=== PATIENT | male | born 1945 | race Caucasian/White ===

== ENCOUNTER 2023-05-19 09:43 | Inpatient (IN) | payer MEDICARE, OTHER ==
[~2023-05-19] VITALS: Ht 182.9 cm; Wt 94.2 kg
[~2023-05-19 09:43] MED LIST: PANT40TA2 PO; QUET50TA PO; SUCR1SUS26 PO
[2023-05-19 09:59] VITALS: PULSE 104; RESP 16; O2SAT 91
[2023-05-19] MEDS ORDERED: SODIUM CHLORIDE 0.9% 1,000 ML IV ONE (10:45)
[2023-05-19 11:07] LABS: Basophils # (auto) 0 10 ^3/uL (0-0.2); Basophils % (auto) 0.5 % (0.0-2.0); Eosinophils # (auto) 0 10 ^3/uL (0-0.8); Eosinophils % (auto) 0.2 % (0.0-7.0); Hematocrit 28.5 % (41.0-53.0); Hemoglobin 9.3 g/dL (13.5-17.5); Lymphocytes # (auto) 1.4 10 ^3/uL (0.4-5.4); Lymphocytes % (auto) 14.3 % (10.0-50.0); Mean Corpuscular Hemoglobin 27.9 pg (28.0-32.0); Mean Corpuscular Hgb Conc. 32.5 g/dL (32.0-36.0); Mean Corpuscular Volume 85.7 fL (80.0-100.0); Monocytes # (auto) 0.8 10 ^3/uL (0-1.3); Monocytes % (auto) 7.7 % (0.0-12.0); Neutrophils # (auto) 7.8 10 ^3/uL (1.6-8.6); Neutrophils % (auto) 77.3 % (37.0-80.0); Red Blood Cells 3.33 10^6/uL (4.5-5.90); Red Cell Distribution Width 18.6 % (11.8-14.3)
[2023-05-19 11:24] LABS: INR 1.17 (0.9-1.15); Prothrombin Time 12.2 sec (9.3-11.8)
[2023-05-19 11:37] LABS: Albumin 2.9 g/dL (3.4-5.0); Calcium 8.3 mg/dL (8.5-10.1); Magnesium 1.7 mg/dL (1.6-2.6); Potassium 4.6 mmol/L (3.5-5.1)
[2023-05-19 11:41] LABS: BUN/Creatinine Ratio 60.7 (10.0-20.0); Bilirubin, Total 0.2 mg/dL (0.2-1.0); Total Protein 6.4 g/dL (6.4-8.2)
[2023-05-19] MEDS ORDERED: IOHEXOL 300 MG/ML 100ML BOTTLE IJ ONE (12:08)
[2023-05-19] MEDS ORDERED: ONDANSETRON HCL 4 MG/2 ML VIAL IV PRN (16:00)
[2023-05-19] MEDS ORDERED: D5W/LACTATED RINGERS 1,000 ML IV ONE (16:00)
[2023-05-19] MEDS ORDERED: HYDROcodone-ACET 5/325MG TAB PO PRN (16:00)
[2023-05-19] MEDS ORDERED: ACETAMINOPHEN 325 MG TAB PO PRN (16:00)
[2023-05-19 16:39] LABS: Basophils # (auto) 0 10 ^3/uL (0-0.2); Basophils % (auto) 0.3 % (0.0-2.0); Eosinophils # (auto) 0 10 ^3/uL (0-0.8); Eosinophils % (auto) 0.2 % (0.0-7.0); Hematocrit 27.3 % (41.0-53.0); Hemoglobin 8.8 g/dL (13.5-17.5); Lymphocytes # (auto) 1.9 10 ^3/uL (0.4-5.4); Lymphocytes % (auto) 15.5 % (10.0-50.0); Mean Corpuscular Hemoglobin 27.8 pg (28.0-32.0); Mean Corpuscular Hgb Conc. 32.4 g/dL (32.0-36.0); Mean Corpuscular Volume 85.8 fL (80.0-100.0); Monocytes # (auto) 1.1 10 ^3/uL (0-1.3); Monocytes % (auto) 9.1 % (0.0-12.0); Neutrophils # (auto) 9.1 10 ^3/uL (1.6-8.6); Neutrophils % (auto) 74.9 % (37.0-80.0); Red Blood Cells 3.18 10^6/uL (4.5-5.90); Red Cell Distribution Width 18.4 % (11.8-14.3); White Blood Cell 12.2 10^3/uL (4.4-10.8)
[2023-05-19 17:32] LABS: % Iron Saturation 20.1 % (20-55)
[2023-05-19 19:25] VITALS: PULSE 68; RESP 18; O2SAT 91
[2023-05-19 21:32] LABS: Urine WBC None Seen /hpf (0 - 3)
[2023-05-19 21:40] LABS: Urine Bacteria NONE SEEN /hpf (None Seen); Urine Blood Negative /uL (Negative); Urine Clarity Clear (Clear); Urine Color Colorless (Yellow); Urine Protein, UAD Negative (Negative); Urine Specific Gravity 1.039 (1.001-1.035); Urine Urobilinogen Normal (Negative); Urine pH 5.5 (5.0-8.0)
[2023-05-19 21:59] LABS: Basophils # (auto) 0.1 10 ^3/uL (0-0.2); Eosinophils # (auto) 0 10 ^3/uL (0-0.8); Eosinophils % (auto) 0.3 % (0.0-7.0); Hemoglobin 8.2 g/dL (13.5-17.5); Neutrophils # (auto) 7.5 10 ^3/uL (1.6-8.6)
[2023-05-19] MEDS ORDERED: PANTOPRAZOLE 40 MG/10 ML VIAL INJ IV SCH (22:00)
[2023-05-19 22:01] LABS: Basophils % (auto) 0.6 % (0.0-2.0); Hematocrit 25.6 % (41.0-53.0); Lymphocytes # (auto) 1.3 10 ^3/uL (0.4-5.4); Lymphocytes % (auto) 13.5 % (10.0-50.0); Mean Corpuscular Hemoglobin 28.1 pg (28.0-32.0); Mean Corpuscular Volume 87.9 fL (80.0-100.0); Monocytes % (auto) 10.2 % (0.0-12.0); Neutrophils % (auto) 75.4 % (37.0-80.0); Nucleated Red Blood Cells % 0.1 %; Red Blood Cells 2.91 10^6/uL (4.5-5.90); Red Cell Distribution Width 18.2 % (11.8-14.3); White Blood Cell 9.9 10^3/uL (4.4-10.8)
[2023-05-19] MEDS: SODIUM CHLOR 0.9% PF (SALINE LOCK) 10ML VIAL/SYR IV SCH (22:05)
[2023-05-20] VITALS (32 sets, daily range): BP systolic 59–132; BP diastolic 26–90; PULSE 102–145; RESP 11–28; TEMP 97.5–99.9; O2SAT 94–100
[2023-05-20] MEDS ORDERED: SODIUM CHLORIDE 0.9% 500 ML IV ONE (01:30)
[2023-05-20 01:47] LABS: Hematocrit 20.7 % (41.0-53.0)
[2023-05-20 01:50] LABS: Hemoglobin 6.7 g/dL (13.5-17.5)
[2023-05-20] MEDS ORDERED: NOREPINEPHRINE 8 MG/250ML KIT 250 ML IV ONE (01:59)
[2023-05-20] MEDS ORDERED: NOREPINEPHRINE 8 MG/250ML KIT 250 ML IV SCH (02:00)
[2023-05-20 02:30] LABS: BUN/Creatinine Ratio 52.6 (10.0-20.0); Calcium 7.8 mg/dL (8.5-10.1)
[2023-05-20] MEDS: PANTOPRAZOLE 40mg/50ML NS AE 50 ML IV SCH ×4 (03:26→16:40)
[2023-05-20] MEDS ORDERED: ETOMIDATE (2MG/ML) 20ML VIAL IV ONE ×2 (05:18→06:00)
[2023-05-20] MEDS ORDERED: ROCURONIUM 10MG/ML 10ML VIAL IV ONE ×2 (05:19→06:00)
[2023-05-20] MEDS ORDERED: MIDAZOLAM DRIP 50 mg/50mL 50 ML IV ONE (05:38)
[2023-05-20] MEDS ORDERED: fentaNYL Drip 2500mCg/250mlNS 250 ML IV ONE (05:45)
[2023-05-20 05:52] LABS: Basophils # (auto) 0 10 ^3/uL (0-0.2); Basophils % (auto) 0.2 % (0.0-2.0); Eosinophils # (auto) 0 10 ^3/uL (0-0.8); Eosinophils % (auto) 0.1 % (0.0-7.0); Hematocrit 31.7 % (41.0-53.0); Hemoglobin 10.3 g/dL (13.5-17.5); Lymphocytes # (auto) 2.6 10 ^3/uL (0.4-5.4); Lymphocytes % (auto) 17.6 % (10.0-50.0); Mean Corpuscular Hemoglobin 29.1 pg (28.0-32.0); Mean Corpuscular Hgb Conc. 32.4 g/dL (32.0-36.0); Mean Corpuscular Volume 89.8 fL (80.0-100.0); Monocytes # (auto) 1.5 10 ^3/uL (0-1.3); Neutrophils # (auto) 10.4 10 ^3/uL (1.6-8.6); Neutrophils % (auto) 72.1 % (37.0-80.0); Red Blood Cells 3.53 10^6/uL (4.5-5.90); Red Cell Distribution Width 17.3 % (11.8-14.3); White Blood Cell 14.5 10^3/uL (4.4-10.8)
[2023-05-20 06:07] LABS: Base Excess -7.4 mmol/L (-2.0-2.0)
[2023-05-20] MEDS: fentaNYL Drip 2500mCg/250mlNS 250 ML IV SCH ×2 (06:10→23:56)
[2023-05-20] MEDS: SODIUM CHLOR 0.9% PF (SALINE LOCK) 10ML VIAL/SYR IV SCH ×3 (06:16→23:56)
[2023-05-20] MEDS ORDERED: PHENYLEPHRINE IV 250 ML IV ONE ×3 (06:18→16:36)
[2023-05-20] MEDS ORDERED: PHENYLEPHRINE IV 250 ML IV STA (06:26)
[2023-05-20] MEDS ORDERED: PHENYLEPHRINE IV 250 ML IV SCH (06:30)
[2023-05-20 07:21] LABS: Base Excess -10.2 mmol/L (-2.0-2.0)
[2023-05-20] MEDS: MIDAZOLAM DRIP 50 mg/50mL 50 ML IV SCH (07:51)
[2023-05-20] MEDS: OCTREOTIDE ACETATE 500 MCG in SODIUM CHL 0.9% 99 ML IV SCH ×2 (09:37→19:37)
[2023-05-20 11:15] LABS: Basophils # (auto) 0 10 ^3/uL (0-0.2); Basophils % (auto) 0.3 % (0.0-2.0); Eosinophils # (auto) 0 10 ^3/uL (0-0.8); Lymphocytes # (auto) 2.1 10 ^3/uL (0.4-5.4); Nucleated Red Blood Cells % 0.2 %
[2023-05-20 11:16] LABS: Eosinophils % (auto) 0.1 % (0.0-7.0); Hematocrit 39.2 % (41.0-53.0); Hemoglobin 12.2 g/dL (13.5-17.5); Lymphocytes % (auto) 11.1 % (10.0-50.0); Mean Corpuscular Hemoglobin 29.2 pg (28.0-32.0); Mean Corpuscular Hgb Conc. 31.2 g/dL (32.0-36.0); Mean Corpuscular Volume 93.8 fL (80.0-100.0); Monocytes # (auto) 2.3 10 ^3/uL (0-1.3); Monocytes % (auto) 12.5 % (0.0-12.0); Neutrophils # (auto) 14.1 10 ^3/uL (1.6-8.6); Red Blood Cells 4.18 10^6/uL (4.5-5.90); Red Cell Distribution Width 17.3 % (11.8-14.3); White Blood Cell 18.6 10^3/uL (4.4-10.8)
[2023-05-20] MEDS ORDERED: AZITHROMYCIN 500MG/ 250ML 250 ML IV ONE (13:15)
[2023-05-20] MEDS ORDERED: SODIUM CHLORIDE 0.9% 1,000 ML IV ONE (13:15)
[2023-05-20] MEDS ORDERED: cefTRIAXone 1GM/50ML D5W 50 ML IV ONE (13:15)
[2023-05-20] MEDS: ALBUTEROL SULF 2.5 MG/0.5ML(0.5%) NEB SOLN NEB SCH ×3 (13:17→23:18)
[2023-05-20] MEDS: IPRATROPIUM BROM 0.5 MG/2.5ML INH SOL NEB SCH ×3 (13:18→23:18)
[2023-05-20] MEDS: PHENYLEPHRINE INJ 40 MG in SODIUM CHL 0.9% 246 ML IV SCH (18:51)
[2023-05-20] MEDS: NOREPINEPHRINE BITARTRATE 16 MG in SODIUM CHL 0.9% 234 ML IV SCH (19:40)
[2023-05-20 21:11] LABS: Basophils # (auto) 0.1 10 ^3/uL (0-0.2); Basophils % (auto) 0.5 % (0.0-2.0); Eosinophils # (auto) 0 10 ^3/uL (0-0.8); Eosinophils % (auto) 0.1 % (0.0-7.0); Hematocrit 37.6 % (41.0-53.0); Hemoglobin 11.9 g/dL (13.5-17.5); Lymphocytes # (auto) 2.5 10 ^3/uL (0.4-5.4); Lymphocytes % (auto) 13.8 % (10.0-50.0); Mean Corpuscular Hgb Conc. 31.6 g/dL (32.0-36.0); Mean Corpuscular Volume 91.7 fL (80.0-100.0); Monocytes # (auto) 3.4 10 ^3/uL (0-1.3); Neutrophils # (auto) 12.4 10 ^3/uL (1.6-8.6); Neutrophils % (auto) 67.2 % (37.0-80.0); Nucleated Red Blood Cells % 1.3 %; Red Cell Distribution Width 16.4 % (11.8-14.3); White Blood Cell 18.4 10^3/uL (4.4-10.8)
[2023-05-20 21:18] LABS: Monocytes % (auto) 18.4 % (0.0-12.0)
[2023-05-21] VITALS (108 sets, daily range): BP systolic 78–125; BP diastolic 47–70; PULSE 92–130; RESP 11–28; TEMP 96.1–101.1; O2SAT 94–100
[2023-05-21] MEDS ORDERED: PHENYLEPHRINE HCL 10 MG/ML VL ONE ×2 (01:51→06:53)
[2023-05-21] MEDS ORDERED: PHENYLEPHRINE IV 250 ML IV ONE ×2 (01:52→06:53)
[2023-05-21] MEDS: ALBUTEROL SULF 2.5 MG/0.5ML(0.5%) NEB SOLN NEB SCH ×6 (02:22→22:07)
[2023-05-21] MEDS: PHENYLEPHRINE INJ 40 MG in SODIUM CHL 0.9% 246 ML IV SCH ×4 (02:22→14:47)
[2023-05-21] MEDS: IPRATROPIUM BROM 0.5 MG/2.5ML INH SOL NEB SCH ×6 (02:22→22:07)
[2023-05-21] MEDS: PANTOPRAZOLE 40mg/50ML NS AE 50 ML IV SCH ×4 (03:07→18:31)
[2023-05-21] MEDS: MIDAZOLAM DRIP 50 mg/50mL 50 ML IV SCH ×7 (03:13→22:58)
[2023-05-21] MEDS: NOREPINEPHRINE BITARTRATE 16 MG in SODIUM CHL 0.9% 234 ML IV SCH ×3 (04:37→23:02)
[2023-05-21 04:38] LABS: Basophils # (auto) 0 10 ^3/uL (0-0.2); Basophils % (auto) 0.3 % (0.0-2.0); Eosinophils # (auto) 0 10 ^3/uL (0-0.8); Eosinophils % (auto) 0.3 % (0.0-7.0); Hematocrit 38.2 % (41.0-53.0); Hemoglobin 12.1 g/dL (13.5-17.5); Lymphocytes # (auto) 1.9 10 ^3/uL (0.4-5.4); Lymphocytes % (auto) 11.6 % (10.0-50.0); Mean Corpuscular Hemoglobin 30.1 pg (28.0-32.0); Mean Corpuscular Hgb Conc. 31.6 g/dL (32.0-36.0); Mean Corpuscular Volume 95.2 fL (80.0-100.0); Monocytes # (auto) 2.9 10 ^3/uL (0-1.3); Monocytes % (auto) 17.9 % (0.0-12.0); Neutrophils # (auto) 11.4 10 ^3/uL (1.6-8.6); Neutrophils % (auto) 69.9 % (37.0-80.0); Nucleated Red Blood Cells % 1.7 %; Red Blood Cells 4.01 10^6/uL (4.5-5.90); Red Cell Distribution Width 17.3 % (11.8-14.3); White Blood Cell 16.3 10^3/uL (4.4-10.8)
[2023-05-21 04:54] LABS: Albumin 2.3 g/dL (3.4-5.0); Calcium 6.6 mg/dL (8.5-10.1); Potassium 5.4 mmol/L (3.5-5.1)
[2023-05-21 04:57] LABS: BUN/Creatinine Ratio 28.2 (10.0-20.0); Bilirubin, Total 0.3 mg/dL (0.2-1.0); Total Protein 5.1 g/dL (6.4-8.2)
[2023-05-21] MEDS: OCTREOTIDE ACETATE 500 MCG in SODIUM CHL 0.9% 99 ML IV SCH ×2 (07:14→15:41)
[2023-05-21] MEDS: SODIUM CHLOR 0.9% PF (SALINE LOCK) 10ML VIAL/SYR IV SCH ×3 (07:15→23:02)
[2023-05-21 07:32] LABS: Base Excess -13.1 mmol/L (-2.0-2.0)
[2023-05-21] MEDS: VASOPRESSIN 40 UNITS in D5W 5% 198 ML IV SCH ×3 (08:26→20:57)
[2023-05-21] MEDS: fentaNYL Drip 2500mCg/250mlNS 250 ML IV SCH ×2 (08:53→17:29)
[2023-05-21] MEDS: cefTRIAXone 1GM/50ML D5W 50 ML IV SCH (09:08)
[2023-05-21] MEDS ORDERED: EPINEPHrine HCL 1 MG/10 ML SYRG ONE (09:34)
[2023-05-21] MEDS ORDERED: CLINIMIX PER PHARMACY 0 ML IV SCH (10:00)
[2023-05-21] MEDS ORDERED: SODIUM CHLORIDE 0.9% 500 ML IV ONE (10:00)
[2023-05-21] MEDS: AZITHROMYCIN 500MG/ 250ML 250 ML IV SCH (10:24)
[2023-05-21] MEDS ORDERED: SODIUM CHLORIDE 0.9% 1,000 ML IV SCH (12:45)
[2023-05-21] MEDS ORDERED: ALBUMIN 25% 100 ML IV ONE ×2 (12:45→14:30)
[2023-05-21 17:16] LABS: COVID19 ANTIGEN SOFIA FIA NEGATIVE (NEGATIVE)
[2023-05-21] MEDS: SODIUM BICARBONATE 50ML VIAL 50 ML in SOD CHL 0.45% 1,000 ML IV SCH (17:57)
[2023-05-21] MEDS ORDERED: DEXTROSE (50%) 50ML SYRG IV SCH (18:30)
[2023-05-21] MEDS ORDERED: CALCIUM GLUC 1,000mg/50ml-NS 50 ML IV ONE (18:30)
[2023-05-21] MEDS: PHENYLEPHRINE INJ 80 MG in SODIUM CHL 0.9% 242 ML IV SCH (18:31)
[2023-05-21 18:51] LABS: Protein, Urine 55.4 mg/dL (0.0-11.9); Urine Protein/Creatinine Ratio 0.87
[2023-05-21] MEDS ORDERED: AMINO ACID INFUSION IN D5W 1,000 ML IV NR (20:00)
[2023-05-21 20:30] LABS: Hematocrit 29.8 % (41.0-53.0); Hemoglobin 9.4 g/dL (13.5-17.5)
[2023-05-21] MEDS: ACETAMINOPHEN 650 MG RECT SUPP PR PRN (20:40)
[2023-05-21] MEDS: AMINO ACID INFUSION IN D10W 1,000 ML IV NR (20:58)
[2023-05-21] MEDS: ACCU-CHEK COMFORT CURVE STRIP VI SCH (23:06)
[2023-05-21] MEDS: InsuLIN REG 1unit/0.01ml Soln (100units/ml) SC SCH (23:10)
[2023-05-22] VITALS (124 sets, daily range): BP systolic 78–147; BP diastolic 40–82; PULSE 66–127; RESP 23–30; TEMP 82–100.8; O2SAT 91–100
[2023-05-22] MEDS: PANTOPRAZOLE 40mg/50ML NS AE 50 ML IV SCH ×4 (00:04→23:19)
[2023-05-22] MEDS: PHENYLEPHRINE INJ 80 MG in SODIUM CHL 0.9% 242 ML IV SCH (00:43)
[2023-05-22] MEDS: VASOPRESSIN 40 UNITS in D5W 5% 198 ML IV SCH ×3 (01:21→09:38)
[2023-05-22] MEDS: MIDAZOLAM DRIP 50 mg/50mL 50 ML IV SCH ×6 (01:24→20:39)
[2023-05-22] MEDS: ALBUTEROL SULF 2.5 MG/0.5ML(0.5%) NEB SOLN NEB SCH ×6 (02:11→22:11)
[2023-05-22] MEDS: IPRATROPIUM BROM 0.5 MG/2.5ML INH SOL NEB SCH ×6 (02:11→22:11)
[2023-05-22] MEDS: OCTREOTIDE ACETATE 500 MCG in SODIUM CHL 0.9% 99 ML IV SCH ×4 (02:44→23:16)
[2023-05-22] MEDS: fentaNYL Drip 2500mCg/250mlNS 250 ML IV SCH ×3 (02:50→18:38)
[2023-05-22] MEDS: SODIUM BICARBONATE 50ML VIAL 50 ML in SOD CHL 0.45% 1,000 ML IV SCH ×3 (03:55→23:16)
[2023-05-22 04:40] LABS: Albumin 2.3 g/dL (3.4-5.0); Calcium 6.1 mg/dL (8.5-10.1); Magnesium 1.6 mg/dL (1.6-2.6); Mean Corpuscular Hgb Conc. 31.6 g/dL (32.0-36.0); Potassium 4.2 mmol/L (3.5-5.1); Red Blood Cells 2.61 10^6/uL (4.5-5.90); White Blood Cell 6.8 10^3/uL (4.4-10.8)
[2023-05-22 04:42] LABS: Hematocrit 24.7 % (41.0-53.0); Hemoglobin 7.8 g/dL (13.5-17.5); Mean Corpuscular Volume 94.9 fL (80.0-100.0); Red Cell Distribution Width 17.1 % (11.8-14.3)
[2023-05-22 04:45] LABS: BUN/Creatinine Ratio 25.8 (10.0-20.0); Bilirubin, Total 0.3 mg/dL (0.2-1.0); Phosphorus 2.2 mg/dL (2.5-4.90); Total Protein 4.9 g/dL (6.4-8.2)
[2023-05-22 04:54] LABS: Basophils % (manual) 0 (0.0-2.0); Blast Cells 0; Eosinophils % (manual) 0 (0-7); Metamyelocytes % 0; Myelocytes % 0; Promyelocytes % 0; Reactive Lymphocytes 0
[2023-05-22] MEDS: SODIUM CHLOR 0.9% PF (SALINE LOCK) 10ML VIAL/SYR IV SCH ×3 (05:38→23:17)
[2023-05-22] MEDS: ACCU-CHEK COMFORT CURVE STRIP VI SCH ×4 (05:38→23:42)
[2023-05-22] MEDS: InsuLIN REG 1unit/0.01ml Soln (100units/ml) SC SCH ×4 (05:44→23:42)
[2023-05-22 06:44] LABS: Band Neutrophils % (manual) 2; Lymphocytes % (manual) 15 (10.0-50.0); Monocytes % (manual) 12 (0-12)
[2023-05-22 06:47] LABS: Platelet Estimate Decreased
[2023-05-22] MEDS: NOREPINEPHRINE BITARTRATE 16 MG in SODIUM CHL 0.9% 234 ML IV SCH ×2 (07:14→17:47)
[2023-05-22 07:40] LABS: Base Excess -7.5 mmol/L (-2.0-2.0)
[2023-05-22] MEDS ORDERED: SODIUM PHOSPHATES 20 MEQ in SODIUM CHL 0.9% 100 ML IV ONE (09:30)
[2023-05-22] MEDS: cefTRIAXone 1GM/50ML D5W 50 ML IV SCH (09:42)
[2023-05-22] MEDS: AZITHROMYCIN 500MG/ 250ML 250 ML IV SCH (10:44)
[2023-05-22 12:09] LABS: Base Excess -5.3 mmol/L (-2.0-2.0)
[2023-05-22] MEDS: ALBUMIN 25% 100 ML IV SCH ×2 (13:51→18:53)
[2023-05-22] MEDS: VASOPRESSIN 20 UNITS in SODIUM CHL 0.9% 99 ML IV SCH ×2 (16:10→22:52)
[2023-05-22] MEDS: ACETAMINOPHEN 650 MG RECT SUPP PR PRN ×2 (16:53→23:05)
[2023-05-22] MEDS ORDERED: diphenhdrAMINE HCL 50 MG/1 ML VL IV ONE (18:30)
[2023-05-22] MEDS: AMINO ACID INFUSION IN D10W 1,000 ML IV NR (20:36)
[2023-05-23] VITALS (106 sets, daily range): BP systolic 85–126; BP diastolic 42–76; PULSE 70–122; RESP 22–32; TEMP 96.5–100; O2SAT 95–100
[2023-05-23] MEDS: ALBUTEROL SULF 2.5 MG/0.5ML(0.5%) NEB SOLN NEB SCH ×6 (02:05→22:11)
[2023-05-23] MEDS: IPRATROPIUM BROM 0.5 MG/2.5ML INH SOL NEB SCH ×6 (02:05→22:11)
[2023-05-23] MEDS: fentaNYL Drip 2500mCg/250mlNS 250 ML IV SCH ×3 (02:38→17:36)
[2023-05-23] MEDS: ALBUMIN 25% 100 ML IV SCH (03:32)
[2023-05-23 03:52] LABS: Hemoglobin 8.8 g/dL (13.5-17.5)
[2023-05-23 03:55] LABS: Hematocrit 25.9 % (41.0-53.0); Mean Corpuscular Hgb Conc. 33.9 g/dL (32.0-36.0); Mean Corpuscular Volume 88.3 fL (80.0-100.0); Red Blood Cells 2.93 10^6/uL (4.5-5.90); Red Cell Distribution Width 17.2 % (11.8-14.3)
[2023-05-23 04:01] LABS: Basophils % (manual) 0 (0.0-2.0); Blast Cells 0; Myelocytes % 0; Promyelocytes % 0; Reactive Lymphocytes 0
[2023-05-23 04:25] LABS: Albumin 2.4 g/dL (3.4-5.0); Magnesium 1.2 mg/dL (1.6-2.6); Potassium 3.1 mmol/L (3.5-5.1)
[2023-05-23 04:30] LABS: Bilirubin, Total 0.7 mg/dL (0.2-1.0); Total Protein 4.7 g/dL (6.4-8.2)
[2023-05-23 05:09] LABS: Calcium 5.7 mg/dL (8.5-10.1)
[2023-05-23 05:10] LABS: Phosphorus 0.9 mg/dL (2.5-4.90)
[2023-05-23] MEDS: PANTOPRAZOLE 40mg/50ML NS AE 50 ML IV SCH ×4 (05:24→21:29)
[2023-05-23] MEDS: ACCU-CHEK COMFORT CURVE STRIP VI SCH ×3 (05:24→18:47)
[2023-05-23] MEDS: SODIUM CHLOR 0.9% PF (SALINE LOCK) 10ML VIAL/SYR IV SCH ×3 (05:24→21:30)
[2023-05-23] MEDS: InsuLIN REG 1unit/0.01ml Soln (100units/ml) SC SCH ×3 (05:24→18:00)
[2023-05-23] MEDS: NOREPINEPHRINE BITARTRATE 16 MG in SODIUM CHL 0.9% 234 ML IV SCH (05:26)
[2023-05-23] MEDS ORDERED: SODIUM PHOSPHATES 40 MEQ in D5W 5% 250 ML IV ONE (06:15)
[2023-05-23] MEDS ORDERED: CALCIUM GLUC 1,000mg/50ml-NS 50 ML IV ONE (06:15)
[2023-05-23] MEDS: MAGNESIUM SULFATE 1GM/100ML 100 ML IV SCH ×2 (06:35→07:38)
[2023-05-23 08:01] LABS: Band Neutrophils % (manual) 28; Lymphocytes % (manual) 17 (10.0-50.0); Monocytes % (manual) 9 (0-12)
[2023-05-23 08:02] LABS: Anisocytosis Slight; Eosinophils % (manual) 8 (0-7); Metamyelocytes % 4
[2023-05-23 08:03] LABS: Platelet Estimate Decreased
[2023-05-23 08:34] LABS: Base Excess -2.3 mmol/L (-2.0-2.0)
[2023-05-23] MEDS: cefTRIAXone 1GM/50ML D5W 50 ML IV SCH (09:21)
[2023-05-23] MEDS: SODIUM BICARBONATE 50ML VIAL 50 ML in SOD CHL 0.45% 1,000 ML IV SCH ×2 (09:23→19:33)
[2023-05-23] MEDS: OCTREOTIDE ACETATE 500 MCG in SODIUM CHL 0.9% 99 ML IV SCH (09:23)
[2023-05-23] MEDS: VASOPRESSIN 20 UNITS in SODIUM CHL 0.9% 99 ML IV SCH ×2 (09:31→21:06)
[2023-05-23] MEDS: AZITHROMYCIN 500MG/ 250ML 250 ML IV SCH (10:11)
[2023-05-23] MEDS: CALCIUM GLUC 1,000mg/50ml-NS 50 ML IV SCH ×2 (11:24→15:27)
[2023-05-23] MEDS: POTASSIUM CHL 20MEQ/100ML 100 ML IV SCH ×2 (12:07→14:45)
[2023-05-23 14:01] LABS: INR 1.48 (0.9-1.15); Prothrombin Time 15.1 sec (9.3-11.8)
[2023-05-23] MEDS ORDERED: MEPERIDINE HCL (25 MG/ML) 1ML VIAL IV PRN (14:45)
[2023-05-23] MEDS: MIDAZOLAM DRIP 50 mg/50mL 50 ML IV SCH ×3 (14:45→21:32)
[2023-05-23] MEDS ORDERED: CALCIUM GLUC 1,000mg/50ml-NS 50 ML IV SCH (15:00)
[2023-05-23] MEDS: PHENYLEPHRINE INJ 80 MG in SODIUM CHL 0.9% 242 ML IV SCH (15:30)
[2023-05-23 18:24] LABS: Albumin 2.5 g/dL (3.4-5.0); Calcium 6.6 mg/dL (8.5-10.1); Potassium 3.3 mmol/L (3.5-5.1)
[2023-05-23 18:27] LABS: BUN/Creatinine Ratio 15.6 (10.0-20.0); Bilirubin, Total 0.6 mg/dL (0.2-1.0)
[2023-05-23] MEDS: AMINO ACID INFUSION IN D10W 1,000 ML IV NR (21:30)
[2023-05-24] VITALS (110 sets, daily range): BP systolic 59–142; BP diastolic 18–95; PULSE 71–151; RESP 10–31; TEMP 97.2–99.1; O2SAT 94–100
[2023-05-24] MEDS: PANTOPRAZOLE 40mg/50ML NS AE 50 ML IV SCH ×4 (01:00→13:08)
[2023-05-24 01:28] LABS: Basophils # (auto) 0 10 ^3/uL (0-0.2); Basophils % (auto) 0.4 % (0.0-2.0); Eosinophils # (auto) 0 10 ^3/uL (0-0.8); Eosinophils % (auto) 0.2 % (0.0-7.0); Hematocrit 43.6 % (41.0-53.0); Hemoglobin 14.6 g/dL (13.5-17.5); Lymphocytes # (auto) 4.4 10 ^3/uL (0.4-5.4); Lymphocytes % (auto) 53.2 % (10.0-50.0); Mean Corpuscular Hemoglobin 32.2 pg (28.0-32.0); Mean Corpuscular Hgb Conc. 33.5 g/dL (32.0-36.0); Monocytes # (auto) 0.4 10 ^3/uL (0-1.3); Monocytes % (auto) 5.3 % (0.0-12.0); Neutrophils # (auto) 3.4 10 ^3/uL (1.6-8.6); Neutrophils % (auto) 40.9 % (37.0-80.0); Nucleated Red Blood Cells % 0.2 %; Red Blood Cells 4.54 10^6/uL (4.5-5.90); Red Cell Distribution Width 13.1 % (11.8-14.3); White Blood Cell 8.3 10^3/uL (4.4-10.8)
[2023-05-24] MEDS: fentaNYL Drip 2500mCg/250mlNS 250 ML IV SCH ×3 (02:02→18:32)
[2023-05-24] MEDS: IPRATROPIUM BROM 0.5 MG/2.5ML INH SOL NEB SCH ×6 (02:34→22:11)
[2023-05-24] MEDS: ALBUTEROL SULF 2.5 MG/0.5ML(0.5%) NEB SOLN NEB SCH ×6 (02:34→22:11)
[2023-05-24 04:40] LABS: Albumin 2.3 g/dL (3.4-5.0); BUN/Creatinine Ratio 14.4 (10.0-20.0); Calcium 6.8 mg/dL (8.5-10.1); Potassium 3.2 mmol/L (3.5-5.1)
[2023-05-24 04:48] LABS: Bilirubin, Total 0.6 mg/dL (0.2-1.0); Phosphorus 1.3 mg/dL (2.5-4.90); Total Protein 5.1 g/dL (6.4-8.2)
[2023-05-24] MEDS: MIDAZOLAM DRIP 50 mg/50mL 50 ML IV SCH ×4 (05:23→17:31)
[2023-05-24] MEDS: ACCU-CHEK COMFORT CURVE STRIP VI SCH ×4 (05:26→17:38)
[2023-05-24] MEDS: InsuLIN REG 1unit/0.01ml Soln (100units/ml) SC SCH ×4 (05:34→17:38)
[2023-05-24] MEDS: SODIUM CHLOR 0.9% PF (SALINE LOCK) 10ML VIAL/SYR IV SCH ×5 (06:09→21:38)
[2023-05-24 07:04] LABS: Base Excess -1.5 mmol/L (-2.0-2.0)
[2023-05-24] MEDS: SODIUM BICARBONATE 50ML VIAL 50 ML in SOD CHL 0.45% 1,000 ML IV SCH (07:30)
[2023-05-24] MEDS: VASOPRESSIN 20 UNITS in SODIUM CHL 0.9% 99 ML IV SCH ×2 (07:58→19:20)
[2023-05-24] MEDS ORDERED: LIDOCAINE 1% (LOCAL ANESTH.) PF 5ml SDV ID ONE (08:30)
[2023-05-24] MEDS: cefTRIAXone 1GM/50ML D5W 50 ML IV SCH (08:42)
[2023-05-24] MEDS: AZITHROMYCIN 500MG/ 250ML 250 ML IV SCH (09:09)
[2023-05-24] MEDS ORDERED: POTASSIUM PHOSPHATE 44 MEQ in D5W 5% 250 ML IV ONE (09:30)
[2023-05-24] MEDS ORDERED: CALCIUM GLUC 1,000mg/50ml-NS 50 ML IV ONE (09:45)
[2023-05-24] MEDS ORDERED: MEPERIDINE HCL (25 MG/ML) 1ML VIAL IV PRN (10:15)
[2023-05-24] MEDS ORDERED: LORazepam 2MG/ML-1ML VIAL IV PRN (10:15)
[2023-05-24] MEDS: SOD CHL 0.45% 1,000 ML IV SCH ×2 (12:16→21:39)
[2023-05-24] MEDS: PHENYLEPHRINE INJ 80 MG in SODIUM CHL 0.9% 242 ML IV SCH (15:30)
[2023-05-24] MEDS: NOREPINEPHRINE BITARTRATE 16 MG in SODIUM CHL 0.9% 234 ML IV SCH ×2 (17:18→23:33)
[2023-05-24 19:00] LABS: BUN/Creatinine Ratio 14.3 (10.0-20.0); Calcium 6.1 mg/dL (8.5-10.1); Potassium 3.5 mmol/L (3.5-5.1)
[2023-05-24] MEDS: POTASSIUM CHL 20MEQ/100ML 100 ML IV SCH ×2 (20:33→21:38)
[2023-05-24] MEDS: AMINO ACID INFUSION IN D10W 1,000 ML IV NR (21:38)
[2023-05-25] VITALS (105 sets, daily range): BP systolic 85–151; BP diastolic 43–82; PULSE 59–107; RESP 9–32; TEMP 97.4–99; O2SAT 93–100
[2023-05-25] MEDS: ACCU-CHEK COMFORT CURVE STRIP VI SCH ×4 (01:27→17:31)
[2023-05-25] MEDS: PANTOPRAZOLE 40mg/50ML NS AE 50 ML IV SCH ×6 (01:28→22:31)
[2023-05-25] MEDS: IPRATROPIUM BROM 0.5 MG/2.5ML INH SOL NEB SCH ×6 (02:13→22:12)
[2023-05-25] MEDS: ALBUTEROL SULF 2.5 MG/0.5ML(0.5%) NEB SOLN NEB SCH ×6 (02:13→22:12)
[2023-05-25] MEDS: fentaNYL Drip 2500mCg/250mlNS 250 ML IV SCH ×2 (03:57→22:32)
[2023-05-25] MEDS: MIDAZOLAM DRIP 50 mg/50mL 50 ML IV SCH ×3 (03:58→17:25)
[2023-05-25 04:25] LABS: White Blood Cell 5.6 10^3/uL (4.4-10.8)
[2023-05-25 04:29] LABS: Hematocrit 29.6 % (41.0-53.0); Mean Corpuscular Hemoglobin 29.6 pg (28.0-32.0); Mean Corpuscular Hgb Conc. 33.7 g/dL (32.0-36.0); Mean Corpuscular Volume 87.8 fL (80.0-100.0); Red Blood Cells 3.37 10^6/uL (4.5-5.90); Red Cell Distribution Width 19.1 % (11.8-14.3)
[2023-05-25 04:30] LABS: Potassium 3.6 mmol/L (3.5-5.1)
[2023-05-25 04:35] LABS: Basophils % (manual) 0 (0.0-2.0); Blast Cells 0; Myelocytes % 0; Promyelocytes % 0; Reactive Lymphocytes 0
[2023-05-25 04:37] LABS: BUN/Creatinine Ratio 13.2 (10.0-20.0); Calcium 6.8 mg/dL (8.5-10.1); Magnesium 1.8 mg/dL (1.6-2.6)
[2023-05-25 04:49] LABS: Bilirubin, Total 0.4 mg/dL (0.2-1.0)
[2023-05-25] MEDS: SODIUM CHLOR 0.9% PF (SALINE LOCK) 10ML VIAL/SYR IV SCH ×5 (05:28→21:01)
[2023-05-25] MEDS: InsuLIN REG 1unit/0.01ml Soln (100units/ml) SC SCH ×4 (05:29→17:32)
[2023-05-25 06:37] LABS: Base Excess -3.3 mmol/L (-2.0-2.0)
[2023-05-25] MEDS: VASOPRESSIN 20 UNITS in SODIUM CHL 0.9% 99 ML IV SCH ×2 (07:00→17:31)
[2023-05-25] MEDS: D5W 5% 1,000 ML IV SCH ×2 (08:28→17:29)
[2023-05-25] MEDS: cefTRIAXone 1GM/50ML D5W 50 ML IV SCH (08:46)
[2023-05-25] MEDS: NOREPINEPHRINE BITARTRATE 16 MG in SODIUM CHL 0.9% 234 ML IV SCH ×2 (08:50→21:00)
[2023-05-25] MEDS: AZITHROMYCIN 500MG/ 250ML 250 ML IV SCH (09:26)
[2023-05-25 09:51] LABS: Band Neutrophils % (manual) 18; Eosinophils % (manual) 1 (0-7); Lymphocytes % (manual) 30 (10.0-50.0); Metamyelocytes % 2; Monocytes % (manual) 4 (0-12)
[2023-05-25 09:52] LABS: Anisocytosis Slight
[2023-05-25 09:55] LABS: Platelet Estimate Adequate
[2023-05-25] MEDS ORDERED: POTASSIUM PHOSPHATE 44 MEQ in D5W 5% 250 ML IV ONE (11:00)
[2023-05-25] MEDS: MAGNESIUM SULFATE 1GM/100ML 100 ML IV SCH ×2 (11:56→12:51)
[2023-05-25] MEDS: PHENYLEPHRINE INJ 80 MG in SODIUM CHL 0.9% 242 ML IV SCH (15:30)
[2023-05-25 15:58] LABS: INR 1.31 (0.9-1.15); Prothrombin Time 13.5 sec (9.3-11.8)
[2023-05-25] MEDS ORDERED: CALCIUM GLUC 1,000mg/50ml-NS 50 ML IV ONE (16:15)
[2023-05-25 16:44] LABS: Hematocrit 28.4 % (41.0-53.0); Hemoglobin 9.4 g/dL (13.5-17.5); White Blood Cell 5.7 10^3/uL (4.4-10.8)
[2023-05-25 16:45] LABS: Mean Corpuscular Hemoglobin 29.5 pg (28.0-32.0); Mean Corpuscular Hgb Conc. 33.2 g/dL (32.0-36.0); Mean Corpuscular Volume 88.7 fL (80.0-100.0)
[2023-05-25 17:06] LABS: Basophils % (manual) 0 (0.0-2.0); Blast Cells 0; Metamyelocytes % 0; Myelocytes % 0; Promyelocytes % 0; Reactive Lymphocytes 0
[2023-05-25 17:25] LABS: Band Neutrophils % (manual) 5; Eosinophils % (manual) 5 (0-7); Lymphocytes % (manual) 8 (10.0-50.0); Monocytes % (manual) 19 (0-12)
[2023-05-25 17:33] LABS: Anisocytosis Slight; Ovalocytes FEW; Platelet Estimate Decrea; Target Cell FEW
[2023-05-25] MEDS ORDERED: AMINO ACID INFUSION IN D10W 1,000 ML IV NR (20:00)
[2023-05-25] MEDS ORDERED: FUROSEMIDE 20 MG/2 ML VIAL IV ONE (20:30)
[2023-05-25] MEDS: POTASSIUM CHL 20MEQ/100ML 100 ML IV SCH ×2 (20:54→22:14)
[2023-05-26] VITALS (107 sets, daily range): BP systolic 89–154; BP diastolic 43–83; PULSE 69–104; RESP 11–33; TEMP 98.4–99.7; O2SAT 89–100
[2023-05-26] MEDS: ACCU-CHEK COMFORT CURVE STRIP VI SCH ×5 (00:39→23:33)
[2023-05-26] MEDS: ALBUTEROL SULF 2.5 MG/0.5ML(0.5%) NEB SOLN NEB SCH ×6 (02:00→22:11)
[2023-05-26] MEDS: IPRATROPIUM BROM 0.5 MG/2.5ML INH SOL NEB SCH ×6 (02:01→22:11)
[2023-05-26] MEDS: D5W 5% 1,000 ML IV SCH ×2 (04:19→13:40)
[2023-05-26] MEDS: PANTOPRAZOLE 40mg/50ML NS AE 50 ML IV SCH ×4 (04:19→20:37)
[2023-05-26 04:29] LABS: Mean Corpuscular Hgb Conc. 33.5 g/dL (32.0-36.0); White Blood Cell 6.6 10^3/uL (4.4-10.8)
[2023-05-26 04:31] LABS: Hematocrit 29.2 % (41.0-53.0); Hemoglobin 9.8 g/dL (13.5-17.5); Mean Corpuscular Hemoglobin 29.5 pg (28.0-32.0); Mean Corpuscular Volume 88.2 fL (80.0-100.0); Red Blood Cells 3.31 10^6/uL (4.5-5.90)
[2023-05-26 04:41] LABS: Potassium 3.4 mmol/L (3.5-5.1)
[2023-05-26] MEDS: VASOPRESSIN 20 UNITS in SODIUM CHL 0.9% 99 ML IV SCH ×2 (04:41→15:48)
[2023-05-26 04:47] LABS: Albumin 1.8 g/dL (3.4-5.0); BUN/Creatinine Ratio 12.3 (10.0-20.0); Calcium 6.7 mg/dL (8.5-10.1); Magnesium 1.8 mg/dL (1.6-2.6)
[2023-05-26 04:50] LABS: Bilirubin, Total 0.3 mg/dL (0.2-1.0); Phosphorus 2.2 mg/dL (2.5-4.90); Total Protein 4.9 g/dL (6.4-8.2)
[2023-05-26 05:28] LABS: Blast Cells 0; Metamyelocytes % 0; Myelocytes % 0; Promyelocytes % 0; Reactive Lymphocytes 0
[2023-05-26] MEDS: SODIUM CHLOR 0.9% PF (SALINE LOCK) 10ML VIAL/SYR IV SCH ×5 (05:55→21:44)
[2023-05-26] MEDS: InsuLIN REG 1unit/0.01ml Soln (100units/ml) SC SCH ×5 (05:55→23:33)
[2023-05-26 08:11] LABS: Band Neutrophils % (manual) 3; Basophils % (manual) 1 (0.0-2.0); Eosinophils % (manual) 3 (0-7); Lymphocytes % (manual) 11 (10.0-50.0); Monocytes % (manual) 12 (0-12)
[2023-05-26 08:12] LABS: Toxic Granulation Moderate
[2023-05-26 08:14] LABS: Anisocytosis Moderate; Hypochromia Moderate; Platelet Estimate Decreased
[2023-05-26] MEDS ORDERED: POTASSIUM PHOSPHATE 44 MEQ in D5W 5% 250 ML IV ONE (08:30)
[2023-05-26] MEDS: MAGNESIUM SULFATE 1GM/100ML 100 ML IV SCH ×2 (09:37→11:10)
[2023-05-26] MEDS: AZITHROMYCIN 500MG/ 250ML 250 ML IV SCH (09:37)
[2023-05-26] MEDS: cefTRIAXone 1GM/50ML D5W 50 ML IV SCH (09:38)
[2023-05-26 11:24] LABS: Base Excess -2.2 mmol/L (-2.0-2.0)
[2023-05-26] MEDS ORDERED: CALCIUM GLUC 1,000mg/50ml-NS 50 ML IV ONE (13:00)
[2023-05-26] MEDS: NOREPINEPHRINE BITARTRATE 16 MG in SODIUM CHL 0.9% 234 ML IV SCH (13:21)
[2023-05-26] MEDS: PHENYLEPHRINE INJ 80 MG in SODIUM CHL 0.9% 242 ML IV SCH (15:30)
[2023-05-26] MEDS: MIDAZOLAM DRIP 50 mg/50mL 50 ML IV SCH (17:39)
[2023-05-26] MEDS: AMINO ACID INFUSION IN D10W 1,000 ML IV NR (20:28)
[2023-05-26] MEDS: fentaNYL Drip 2500mCg/250mlNS 250 ML IV SCH (23:20)
[2023-05-27] VITALS (106 sets, daily range): BP systolic 89–138; BP diastolic 45–71; PULSE 73–106; RESP 10–33; TEMP 98.7–100.2; O2SAT 73–100
[2023-05-27] MEDS: MIDAZOLAM DRIP 50 mg/50mL 50 ML IV SCH ×2 (02:04→15:15)
[2023-05-27] MEDS: ALBUTEROL SULF 2.5 MG/0.5ML(0.5%) NEB SOLN NEB SCH ×6 (02:05→21:58)
[2023-05-27] MEDS: IPRATROPIUM BROM 0.5 MG/2.5ML INH SOL NEB SCH ×6 (02:05→21:58)
[2023-05-27] MEDS: VASOPRESSIN 20 UNITS in SODIUM CHL 0.9% 99 ML IV SCH ×2 (02:55→14:02)
[2023-05-27] MEDS: PANTOPRAZOLE 40mg/50ML NS AE 50 ML IV SCH ×4 (03:21→17:30)
[2023-05-27 04:01] LABS: Potassium 4.2 mmol/L (3.5-5.1)
[2023-05-27 04:08] LABS: Albumin 1.7 g/dL (3.4-5.0); BUN/Creatinine Ratio 13.4 (10.0-20.0); Calcium 6.6 mg/dL (8.5-10.1); Magnesium 2.2 mg/dL (1.6-2.6); Phosphorus 2.4 mg/dL (2.5-4.90)
[2023-05-27] MEDS: ACCU-CHEK COMFORT CURVE STRIP VI SCH ×4 (05:22→23:43)
[2023-05-27] MEDS: SODIUM CHLOR 0.9% PF (SALINE LOCK) 10ML VIAL/SYR IV SCH ×5 (05:22→21:16)
[2023-05-27] MEDS: InsuLIN REG 1unit/0.01ml Soln (100units/ml) SC SCH ×4 (05:22→23:44)
[2023-05-27 07:44] LABS: Hematocrit 26.9 % (41.0-53.0); Hemoglobin 8.9 g/dL (13.5-17.5); Mean Corpuscular Hemoglobin 29.7 pg (28.0-32.0); Mean Corpuscular Hgb Conc. 33.3 g/dL (32.0-36.0); Mean Corpuscular Volume 89.2 fL (80.0-100.0); Red Blood Cells 3.01 10^6/uL (4.5-5.90); Red Cell Distribution Width 19.5 % (11.8-14.3); White Blood Cell 6.8 10^3/uL (4.4-10.8)
[2023-05-27 08:42] LABS: Base Excess -1.4 mmol/L (-2.0-2.0)
[2023-05-27 08:55] LABS: Basophils % (manual) 0 (0.0-2.0); Blast Cells 0; Metamyelocytes % 0; Myelocytes % 0; Promyelocytes % 0; Reactive Lymphocytes 0
[2023-05-27] MEDS: cefTRIAXone 1GM/50ML D5W 50 ML IV SCH (09:59)
[2023-05-27] MEDS: AZITHROMYCIN 500MG/ 250ML 250 ML IV SCH (09:59)
[2023-05-27] MEDS ORDERED: SODIUM PHOSPHATES 20 MEQ in SODIUM CHL 0.9% 100 ML IV ONE (11:00)
[2023-05-27] MEDS: fentaNYL Drip 2500mCg/250mlNS 250 ML IV SCH ×2 (12:10→17:32)
[2023-05-27 13:53] LABS: Band Neutrophils % (manual) 1; Eosinophils % (manual) 3 (0-7); Lymphocytes % (manual) 5 (10.0-50.0); Monocytes % (manual) 14 (0-12); Toxic Granulation Moderate
[2023-05-27 13:54] LABS: Anisocytosis Moderate; Hypochromia Moderate
[2023-05-27 13:58] LABS: Platelet Estimate Decreased
[2023-05-27] MEDS ORDERED: FUROSEMIDE 40 MG/4 ML VIAL IV ONE ×2 (15:15→15:30)
[2023-05-27] MEDS: PHENYLEPHRINE INJ 80 MG in SODIUM CHL 0.9% 242 ML IV SCH (15:30)
[2023-05-27] MEDS: NOREPINEPHRINE BITARTRATE 16 MG in SODIUM CHL 0.9% 234 ML IV SCH (16:45)
[2023-05-27] MEDS ORDERED: CALCIUM GLUC 1,000mg/50ml-NS 50 ML IV ONE (18:00)
[2023-05-27] MEDS: AMINO ACID INFUSION IN D10W 1,000 ML IV NR (20:08)
[2023-05-28] VITALS (104 sets, daily range): BP systolic 82–137; BP diastolic 30–73; PULSE 84–114; RESP 17–27; TEMP 99.1–100.8; O2SAT 93–100
[2023-05-28] MEDS: VASOPRESSIN 20 UNITS in SODIUM CHL 0.9% 99 ML IV SCH ×3 (01:09→23:00)
[2023-05-28] MEDS: PANTOPRAZOLE 40mg/50ML NS AE 50 ML IV SCH ×4 (01:47→23:00)
[2023-05-28] MEDS: IPRATROPIUM BROM 0.5 MG/2.5ML INH SOL NEB SCH ×6 (02:18→22:16)
[2023-05-28] MEDS: ALBUTEROL SULF 2.5 MG/0.5ML(0.5%) NEB SOLN NEB SCH ×6 (02:18→22:16)
[2023-05-28 04:06] LABS: Basophils # (auto) 0 10 ^3/uL (0-0.2); Basophils % (auto) 0.2 % (0.0-2.0); Eosinophils # (auto) 0.1 10 ^3/uL (0-0.8); Eosinophils % (auto) 2.1 % (0.0-7.0); Hematocrit 26.9 % (41.0-53.0); Hemoglobin 8.8 g/dL (13.5-17.5); Lymphocytes # (auto) 0.6 10 ^3/uL (0.4-5.4); Lymphocytes % (auto) 8.9 % (10.0-50.0); Mean Corpuscular Hemoglobin 29.2 pg (28.0-32.0); Mean Corpuscular Hgb Conc. 32.9 g/dL (32.0-36.0); Mean Corpuscular Volume 88.8 fL (80.0-100.0); Monocytes # (auto) 0.9 10 ^3/uL (0-1.3); Monocytes % (auto) 12.5 % (0.0-12.0); Neutrophils # (auto) 5.5 10 ^3/uL (1.6-8.6); Neutrophils % (auto) 76.3 % (37.0-80.0); Nucleated Red Blood Cells % 0.4 %; Red Blood Cells 3.03 10^6/uL (4.5-5.90); Red Cell Distribution Width 18.9 % (11.8-14.3); White Blood Cell 7.2 10^3/uL (4.4-10.8)
[2023-05-28 04:27] LABS: Albumin 1.7 g/dL (3.4-5.0); Calcium 6.9 mg/dL (8.5-10.1); Potassium 3.8 mmol/L (3.5-5.1)
[2023-05-28 04:29] LABS: BUN/Creatinine Ratio 15.6 (10.0-20.0); Magnesium 1.9 mg/dL (1.6-2.6); Phosphorus 2.9 mg/dL (2.5-4.90)
[2023-05-28] MEDS: ACCU-CHEK COMFORT CURVE STRIP VI SCH ×4 (05:28→23:04)
[2023-05-28] MEDS: SODIUM CHLOR 0.9% PF (SALINE LOCK) 10ML VIAL/SYR IV SCH ×5 (05:28→21:24)
[2023-05-28] MEDS: InsuLIN REG 1unit/0.01ml Soln (100units/ml) SC SCH ×4 (05:28→23:04)
[2023-05-28 05:37] LABS: Anisocytosis Slight; Large Platelets FEW; Platelet Estimate Decreased; Stomatocytes Few
[2023-05-28] MEDS: NOREPINEPHRINE BITARTRATE 16 MG in SODIUM CHL 0.9% 234 ML IV SCH (06:24)
[2023-05-28] MEDS: MIDAZOLAM DRIP 50 mg/50mL 50 ML IV SCH ×2 (08:42→17:15)
[2023-05-28] MEDS: cefTRIAXone 1GM/50ML D5W 50 ML IV SCH (08:51)
[2023-05-28 09:30] LABS: Base Excess 2.3 mmol/L (-2.0-2.0)
[2023-05-28] MEDS: AZITHROMYCIN 500MG/ 250ML 250 ML IV SCH (09:46)
[2023-05-28] MEDS ORDERED: TPN PER PHARMACY 0 ML IV SCH (11:00)
[2023-05-28] MEDS: DexmedeTOMIDine 200 MCG in D5W 5% 48 ML IV SCH ×2 (11:45→21:04)
[2023-05-28] MEDS: PHENYLEPHRINE INJ 80 MG in SODIUM CHL 0.9% 242 ML IV SCH (15:30)
[2023-05-28] MEDS: fentaNYL Drip 2500mCg/250mlNS 250 ML IV SCH (15:50)
[2023-05-28] MEDS ORDERED: TPN PER PHARMACY IV NR ×10 (20:00)
[2023-05-29] VITALS (110 sets, daily range): BP systolic 102–209; BP diastolic 51–87; PULSE 83–111; RESP 22–33; TEMP 98.8–99.5; O2SAT 97–100
[2023-05-29] MEDS: ALBUTEROL SULF 2.5 MG/0.5ML(0.5%) NEB SOLN NEB SCH ×5 (02:19→21:59)
[2023-05-29] MEDS: IPRATROPIUM BROM 0.5 MG/2.5ML INH SOL NEB SCH ×5 (02:19→21:59)
[2023-05-29] MEDS: PANTOPRAZOLE 40mg/50ML NS AE 50 ML IV SCH ×4 (05:12→20:07)
[2023-05-29] MEDS: ACCU-CHEK COMFORT CURVE STRIP VI SCH ×4 (05:14→23:34)
[2023-05-29] MEDS: InsuLIN REG 1unit/0.01ml Soln (100units/ml) SC SCH ×4 (05:14→23:34)
[2023-05-29] MEDS: SODIUM CHLOR 0.9% PF (SALINE LOCK) 10ML VIAL/SYR IV SCH ×5 (05:15→20:13)
[2023-05-29 05:25] LABS: Albumin 1.6 g/dL (3.4-5.0); Magnesium 2.1 mg/dL (1.6-2.6); Potassium 3.5 mmol/L (3.5-5.1)
[2023-05-29 05:30] LABS: BUN/Creatinine Ratio 21.1 (10.0-20.0); Bilirubin, Total 0.4 mg/dL (0.2-1.0); Phosphorus 2.1 mg/dL (2.5-4.90); Total Protein 4.9 g/dL (6.4-8.2)
[2023-05-29 07:17] LABS: Base Excess 0.7 mmol/L (-2.0-2.0)
[2023-05-29] MEDS: DexmedeTOMIDine 200 MCG in D5W 5% 48 ML IV SCH ×3 (07:33→22:38)
[2023-05-29] MEDS ORDERED: POTASSIUM PHOSP 22MEQ(15MMOLE) in NS 100 ML IV ONE (08:30)
[2023-05-29] MEDS: cefTRIAXone 1GM/50ML D5W 50 ML IV SCH (09:04)
[2023-05-29] MEDS: AZITHROMYCIN 500MG/ 250ML 250 ML IV SCH (09:06)
[2023-05-29] MEDS: VASOPRESSIN 20 UNITS in SODIUM CHL 0.9% 99 ML IV SCH ×2 (10:30→20:13)
[2023-05-29 11:38] LABS: Basophils # (auto) 0 10 ^3/uL (0-0.2); Basophils % (auto) 0.2 % (0.0-2.0); Eosinophils # (auto) 0.1 10 ^3/uL (0-0.8); Eosinophils % (auto) 1.6 % (0.0-7.0); Hematocrit 25.9 % (41.0-53.0); Hemoglobin 8.7 g/dL (13.5-17.5); Lymphocytes # (auto) 0.4 10 ^3/uL (0.4-5.4); Lymphocytes % (auto) 4.7 % (10.0-50.0); Mean Corpuscular Hemoglobin 29.8 pg (28.0-32.0); Mean Corpuscular Hgb Conc. 33.5 g/dL (32.0-36.0); Mean Corpuscular Volume 88.9 fL (80.0-100.0); Monocytes # (auto) 0.8 10 ^3/uL (0-1.3); Monocytes % (auto) 8.6 % (0.0-12.0); Neutrophils # (auto) 7.7 10 ^3/uL (1.6-8.6); Neutrophils % (auto) 84.9 % (37.0-80.0); Nucleated Red Blood Cells % 0.1 %; Red Blood Cells 2.91 10^6/uL (4.5-5.90); Red Cell Distribution Width 18.8 % (11.8-14.3); White Blood Cell 9.1 10^3/uL (4.4-10.8)
[2023-05-29] MEDS: PHENYLEPHRINE INJ 80 MG in SODIUM CHL 0.9% 242 ML IV SCH (15:30)
[2023-05-29] MEDS: fentaNYL Drip 2500mCg/250mlNS 250 ML IV SCH (16:30)
[2023-05-29] MEDS: NOREPINEPHRINE BITARTRATE 16 MG in SODIUM CHL 0.9% 234 ML IV SCH (16:45)
[2023-05-29] MEDS ORDERED: HEPARIN DRIP/D5W 100UNITS/ML 250 ML IV SCH ×2 (18:15→18:30)
[2023-05-29] MEDS ORDERED: HEPARIN SODIUM (PORCINE) 5000 UNITS/ML 1ML VIAL IV ONE (18:15)
[2023-05-29 19:15] LABS: Basophils # (auto) 0 10 ^3/uL (0-0.2); Basophils % (auto) 0.1 % (0.0-2.0); Eosinophils # (auto) 0.2 10 ^3/uL (0-0.8); Eosinophils % (auto) 1.9 % (0.0-7.0); Hematocrit 26.5 % (41.0-53.0); Hemoglobin 8.7 g/dL (13.5-17.5); Lymphocytes # (auto) 0.4 10 ^3/uL (0.4-5.4); Mean Corpuscular Hemoglobin 29.2 pg (28.0-32.0); Mean Corpuscular Hgb Conc. 32.7 g/dL (32.0-36.0); Mean Corpuscular Volume 89.3 fL (80.0-100.0); Monocytes # (auto) 0.7 10 ^3/uL (0-1.3); Monocytes % (auto) 7.9 % (0.0-12.0); Neutrophils # (auto) 7.3 10 ^3/uL (1.6-8.6); Neutrophils % (auto) 85.1 % (37.0-80.0); Nucleated Red Blood Cells % 0.1 %; Red Blood Cells 2.97 10^6/uL (4.5-5.90); Red Cell Distribution Width 18.7 % (11.8-14.3); White Blood Cell 8.6 10^3/uL (4.4-10.8)
[2023-05-29 19:38] LABS: INR 1.13 (0.9-1.15); Prothrombin Time 11.8 sec (9.3-11.8)
[2023-05-29] MEDS ORDERED: TPN PER PHARMACY IV NR ×10 (20:00)
[2023-05-29] MEDS: hydrALAZINE HCL 20 MG/ML VL IV PRN (21:41)
[2023-05-30] VITALS (107 sets, daily range): BP systolic 84–171; BP diastolic 25–92; PULSE 71–117; RESP 15–41; TEMP 98.7–100.1; O2SAT 94–100
[2023-05-30] MEDS: PANTOPRAZOLE 40mg/50ML NS AE 50 ML IV SCH ×5 (00:56→21:37)
[2023-05-30 01:20] LABS: INR 1.14 (0.9-1.15); Partial Thromboplastin Time 27.3 SEC (24.5-34.5); Prothrombin Time 11.9 sec (9.3-11.8)
[2023-05-30] MEDS ORDERED: HEPARIN SODIUM (PORCINE) 5000 UNITS/ML 1ML VIAL IV ONE (01:30)
[2023-05-30] MEDS: ALBUTEROL SULF 2.5 MG/0.5ML(0.5%) NEB SOLN NEB SCH ×6 (02:20→22:17)
[2023-05-30] MEDS: IPRATROPIUM BROM 0.5 MG/2.5ML INH SOL NEB SCH ×6 (02:20→22:16)
[2023-05-30] MEDS: DexmedeTOMIDine 200 MCG in D5W 5% 48 ML IV SCH (02:36)
[2023-05-30 04:01] LABS: Albumin 1.6 g/dL (3.4-5.0); Calcium 7.2 mg/dL (8.5-10.1); Magnesium 2.3 mg/dL (1.6-2.6); Potassium 3.5 mmol/L (3.5-5.1)
[2023-05-30 04:04] LABS: BUN/Creatinine Ratio 22.4 (10.0-20.0); Bilirubin, Total 0.5 mg/dL (0.2-1.0); Phosphorus 2.2 mg/dL (2.5-4.90)
[2023-05-30] MEDS: fentaNYL Drip 2500mCg/250mlNS 250 ML IV SCH (04:46)
[2023-05-30] MEDS: SODIUM CHLOR 0.9% PF (SALINE LOCK) 10ML VIAL/SYR IV SCH ×5 (05:27→20:03)
[2023-05-30] MEDS: InsuLIN REG 1unit/0.01ml Soln (100units/ml) SC SCH ×4 (05:27→23:38)
[2023-05-30] MEDS: ACCU-CHEK COMFORT CURVE STRIP VI SCH ×4 (05:27→23:38)
[2023-05-30] MEDS: MIDAZOLAM DRIP 50 mg/50mL 50 ML IV SCH (05:32)
[2023-05-30] MEDS ORDERED: POTASSIUM PHOSPHATE 44 MEQ in D5W 5% 250 ML IV ONE (07:15)
[2023-05-30 07:22] LABS: Basophils # (auto) 0 10 ^3/uL (0-0.2); Basophils % (auto) 0.2 % (0.0-2.0); Eosinophils # (auto) 0.2 10 ^3/uL (0-0.8); Eosinophils % (auto) 1.8 % (0.0-7.0); Hematocrit 25.8 % (41.0-53.0); Hemoglobin 8.5 g/dL (13.5-17.5); Lymphocytes # (auto) 0.4 10 ^3/uL (0.4-5.4); Mean Corpuscular Hemoglobin 29.4 pg (28.0-32.0); Mean Corpuscular Volume 89.2 fL (80.0-100.0); Monocytes # (auto) 0.6 10 ^3/uL (0-1.3); Monocytes % (auto) 6.7 % (0.0-12.0); Neutrophils % (auto) 87.3 % (37.0-80.0); Nucleated Red Blood Cells % 0.1 %; Red Blood Cells 2.89 10^6/uL (4.5-5.90); Red Cell Distribution Width 18.9 % (11.8-14.3); White Blood Cell 9.2 10^3/uL (4.4-10.8)
[2023-05-30 07:27] LABS: Base Excess 3.1 mmol/L (-2.0-2.0)
[2023-05-30] MEDS: cefTRIAXone 1GM/50ML D5W 50 ML IV SCH (08:33)
[2023-05-30] MEDS: VASOPRESSIN 20 UNITS in SODIUM CHL 0.9% 99 ML IV SCH ×2 (08:44→19:23)
[2023-05-30 09:17] LABS: INR 1.11 (0.9-1.15); Partial Thromboplastin Time 30.1 SEC (24.5-34.5); Prothrombin Time 11.6 sec (9.3-11.8)
[2023-05-30] MEDS ORDERED: HEPARIN SODIUM (PORCINE) 5000 UNITS/ML 1ML VIAL IV STA (09:24)
[2023-05-30] MEDS: HEPARIN DRIP/D5W 100UNITS/ML 250 ML IV SCH ×2 (09:30→18:21)
[2023-05-30] MEDS: AZITHROMYCIN 500MG/ 250ML 250 ML IV SCH (09:44)
[2023-05-30] MEDS: PHENYLEPHRINE INJ 80 MG in SODIUM CHL 0.9% 242 ML IV SCH (15:30)
[2023-05-30] MEDS: NOREPINEPHRINE BITARTRATE 16 MG in SODIUM CHL 0.9% 234 ML IV SCH (16:45)
[2023-05-30 16:59] LABS: INR 1.13 (0.9-1.15); Partial Thromboplastin Time 48.9 SEC (24.5-34.5); Prothrombin Time 11.8 sec (9.3-11.8)
[2023-05-30] MEDS: PROPOFOL 100 ML IV SCH (17:22)
[2023-05-30] MEDS ORDERED: TPN PER PHARMACY IV NR ×10 (20:00)
[2023-05-30 22:31] LABS: INR 1.14 (0.9-1.15); Partial Thromboplastin Time 51.5 SEC (24.5-34.5); Prothrombin Time 11.9 sec (9.3-11.8)
[2023-05-31] VITALS (106 sets, daily range): BP systolic 108–176; BP diastolic 51–74; PULSE 87–115; RESP 22–33; TEMP 98.5–99.8; O2SAT 90–100
[2023-05-31] MEDS: PANTOPRAZOLE 40mg/50ML NS AE 50 ML IV SCH ×5 (02:12→23:10)
[2023-05-31] MEDS: IPRATROPIUM BROM 0.5 MG/2.5ML INH SOL NEB SCH ×6 (02:19→22:03)
[2023-05-31] MEDS: ALBUTEROL SULF 2.5 MG/0.5ML(0.5%) NEB SOLN NEB SCH ×6 (02:19→22:03)
[2023-05-31 03:48] LABS: Basophils # (auto) 0 10 ^3/uL (0-0.2); Eosinophils # (auto) 0.3 10 ^3/uL (0-0.8); Hemoglobin 8.2 g/dL (13.5-17.5); Lymphocytes # (auto) 0.5 10 ^3/uL (0.4-5.4); Red Cell Distribution Width 18.4 % (11.8-14.3)
[2023-05-31 03:52] LABS: Basophils % (auto) 0.4 % (0.0-2.0); Eosinophils % (auto) 3.1 % (0.0-7.0); Hematocrit 24.7 % (41.0-53.0); Lymphocytes % (auto) 5.1 % (10.0-50.0); Mean Corpuscular Hemoglobin 29.7 pg (28.0-32.0); Mean Corpuscular Hgb Conc. 33.1 g/dL (32.0-36.0); Mean Corpuscular Volume 89.6 fL (80.0-100.0); Monocytes # (auto) 0.7 10 ^3/uL (0-1.3); Monocytes % (auto) 8.2 % (0.0-12.0); Neutrophils # (auto) 7.6 10 ^3/uL (1.6-8.6); Neutrophils % (auto) 83.2 % (37.0-80.0); Red Blood Cells 2.76 10^6/uL (4.5-5.90); White Blood Cell 9.1 10^3/uL (4.4-10.8)
[2023-05-31 04:00] LABS: INR 1.17 (0.9-1.15); Partial Thromboplastin Time 50.1 SEC (24.5-34.5); Prothrombin Time 12.2 sec (9.3-11.8)
[2023-05-31 04:05] LABS: Albumin 1.6 g/dL (3.4-5.0); Potassium 3.9 mmol/L (3.5-5.1)
[2023-05-31 04:11] LABS: BUN/Creatinine Ratio 23.3 (10.0-20.0); Bilirubin, Total 0.6 mg/dL (0.2-1.0); Calcium 7.3 mg/dL (8.5-10.1); Magnesium 2.4 mg/dL (1.6-2.6); Phosphorus 2.9 mg/dL (2.5-4.90)
[2023-05-31] MEDS: PROPOFOL 100 ML IV SCH ×2 (04:46→19:22)
[2023-05-31] MEDS: MIDAZOLAM DRIP 50 mg/50mL 50 ML IV SCH (05:10)
[2023-05-31] MEDS: SODIUM CHLOR 0.9% PF (SALINE LOCK) 10ML VIAL/SYR IV SCH ×5 (05:40→21:00)
[2023-05-31] MEDS: ACCU-CHEK COMFORT CURVE STRIP VI SCH ×4 (05:40→23:11)
[2023-05-31] MEDS: InsuLIN REG 1unit/0.01ml Soln (100units/ml) SC SCH ×4 (05:40→23:17)
[2023-05-31] MEDS: VASOPRESSIN 20 UNITS in SODIUM CHL 0.9% 99 ML IV SCH ×2 (05:41→18:05)
[2023-05-31 07:32] LABS: Base Excess 4.9 mmol/L (-2.0-2.0)
[2023-05-31] MEDS: cefTRIAXone 1GM/50ML D5W 50 ML IV SCH (08:40)
[2023-05-31] MEDS: HEPARIN DRIP/D5W 100UNITS/ML 250 ML IV SCH (09:21)
[2023-05-31] MEDS: AZITHROMYCIN 500MG/ 250ML 250 ML IV SCH (09:51)
[2023-05-31 10:28] LABS: INR 1.16 (0.9-1.15); Partial Thromboplastin Time 48.1 SEC (24.5-34.5); Prothrombin Time 12.1 sec (9.3-11.8)
[2023-05-31] MEDS: hydrALAZINE HCL 20 MG/ML VL IV PRN (14:53)
[2023-05-31] MEDS: PHENYLEPHRINE INJ 80 MG in SODIUM CHL 0.9% 242 ML IV SCH (15:30)
[2023-05-31] MEDS ORDERED: METOPROLOL TARTRATE 1MG/1ML-5ML VIAL IV ONE (15:45)
[2023-05-31] MEDS: fentaNYL Drip 2500mCg/250mlNS 250 ML IV SCH (16:30)
[2023-05-31] MEDS: NOREPINEPHRINE BITARTRATE 16 MG in SODIUM CHL 0.9% 234 ML IV SCH (16:45)
[2023-05-31 18:36] LABS: INR 1.19 (0.9-1.15); Partial Thromboplastin Time 63.1 SEC (24.5-34.5); Prothrombin Time 12.4 sec (9.3-11.8)
[2023-05-31] MEDS ORDERED: TPN PER PHARMACY IV NR ×9 (20:00)
[2023-05-31] MEDS ORDERED: SODIUM FERR GLUC 62.5MG/5ML 125 MG in SODIUM CHL 0.9% 100 ML IV ONE (23:45)
[2023-06-01] VITALS (115 sets, daily range): BP systolic 78–136; BP diastolic 41–62; PULSE 78–117; RESP 17–32; TEMP 98.5–100.4; O2SAT 91–100
[2023-06-01 00:24] LABS: INR 1.19 (0.9-1.15); Partial Thromboplastin Time 58.6 SEC (24.5-34.5); Prothrombin Time 12.4 sec (9.3-11.8)
[2023-06-01] MEDS: HEPARIN DRIP/D5W 100UNITS/ML 250 ML IV SCH ×2 (00:41→14:25)
[2023-06-01] MEDS: IPRATROPIUM BROM 0.5 MG/2.5ML INH SOL NEB SCH ×6 (02:20→22:15)
[2023-06-01] MEDS: ALBUTEROL SULF 2.5 MG/0.5ML(0.5%) NEB SOLN NEB SCH ×6 (02:20→22:15)
[2023-06-01] MEDS: PROPOFOL 100 ML IV SCH ×2 (03:36→10:03)
[2023-06-01] MEDS: PANTOPRAZOLE 40mg/50ML NS AE 50 ML IV SCH ×5 (04:09→21:34)
[2023-06-01 04:19] LABS: Hemoglobin 8.1 g/dL (13.5-17.5); Lymphocytes # (auto) 0.6 10 ^3/uL (0.4-5.4); Mean Corpuscular Hgb Conc. 33.2 g/dL (32.0-36.0)
[2023-06-01 04:21] LABS: Basophils # (auto) 0.1 10 ^3/uL (0-0.2); Basophils % (auto) 0.6 % (0.0-2.0); Eosinophils # (auto) 0.4 10 ^3/uL (0-0.8); Eosinophils % (auto) 3.7 % (0.0-7.0); Hematocrit 24.3 % (41.0-53.0); Lymphocytes % (auto) 6.4 % (10.0-50.0); Mean Corpuscular Volume 90.3 fL (80.0-100.0); Monocytes # (auto) 0.9 10 ^3/uL (0-1.3); Monocytes % (auto) 9.8 % (0.0-12.0); Neutrophils # (auto) 7.5 10 ^3/uL (1.6-8.6); Neutrophils % (auto) 79.5 % (37.0-80.0); Nucleated Red Blood Cells % 0.1 %; Red Blood Cells 2.69 10^6/uL (4.5-5.90); Red Cell Distribution Width 18.9 % (11.8-14.3); White Blood Cell 9.4 10^3/uL (4.4-10.8)
[2023-06-01 04:30] LABS: INR 1.19 (0.9-1.15); Partial Thromboplastin Time 58.7 SEC (24.5-34.5); Prothrombin Time 12.4 sec (9.3-11.8)
[2023-06-01 04:34] LABS: Albumin 1.6 g/dL (3.4-5.0); Calcium 7.2 mg/dL (8.5-10.1); Magnesium 2.4 mg/dL (1.6-2.6); Potassium 4.2 mmol/L (3.5-5.1)
[2023-06-01 04:38] LABS: BUN/Creatinine Ratio 30.6 (10.0-20.0); Bilirubin, Total 0.6 mg/dL (0.2-1.0); Phosphorus 2.8 mg/dL (2.5-4.90); Total Protein 5.1 g/dL (6.4-8.2)
[2023-06-01] MEDS: VASOPRESSIN 20 UNITS in SODIUM CHL 0.9% 99 ML IV SCH ×2 (05:12→07:15)
[2023-06-01] MEDS: SODIUM CHLOR 0.9% PF (SALINE LOCK) 10ML VIAL/SYR IV SCH ×5 (05:19→21:32)
[2023-06-01] MEDS: MIDAZOLAM DRIP 50 mg/50mL 50 ML IV SCH (05:19)
[2023-06-01] MEDS: InsuLIN REG 1unit/0.01ml Soln (100units/ml) SC SCH ×3 (05:20→17:17)
[2023-06-01] MEDS: ACCU-CHEK COMFORT CURVE STRIP VI SCH ×3 (05:20→17:16)
[2023-06-01 07:06] LABS: INR 1.21 (0.9-1.15); Partial Thromboplastin Time 58.4 SEC (24.5-34.5); Prothrombin Time 12.5 sec (9.3-11.8)
[2023-06-01] MEDS: PHENYLEPHRINE INJ 80 MG in SODIUM CHL 0.9% 242 ML IV SCH (07:15)
[2023-06-01] MEDS: NOREPINEPHRINE BITARTRATE 16 MG in SODIUM CHL 0.9% 234 ML IV SCH ×2 (07:16→19:00)
[2023-06-01] MEDS: cefTRIAXone 1GM/50ML D5W 50 ML IV SCH (07:34)
[2023-06-01] MEDS: AZITHROMYCIN 500MG/ 250ML 250 ML IV SCH (07:59)
[2023-06-01 08:50] LABS: Base Excess 4.2 mmol/L (-2.0-2.0)
[2023-06-01] MEDS: fentaNYL Drip 2500mCg/250mlNS 250 ML IV SCH ×2 (16:30→21:34)
[2023-06-01] MEDS ORDERED: TPN PER PHARMACY IV NR ×9 (20:00)
[2023-06-02] VITALS (107 sets, daily range): BP systolic 85–148; BP diastolic 45–98; PULSE 62–89; RESP 9–33; TEMP 98.3–99.3; O2SAT 94–100
[2023-06-02] MEDS: ACCU-CHEK COMFORT CURVE STRIP VI SCH ×4 (00:15→18:54)
[2023-06-02] MEDS: InsuLIN REG 1unit/0.01ml Soln (100units/ml) SC SCH ×4 (00:23→18:00)
[2023-06-02] MEDS: PROPOFOL 100 ML IV SCH ×3 (01:26→23:36)
[2023-06-02] MEDS: ALBUTEROL SULF 2.5 MG/0.5ML(0.5%) NEB SOLN NEB SCH ×6 (02:47→22:05)
[2023-06-02] MEDS: IPRATROPIUM BROM 0.5 MG/2.5ML INH SOL NEB SCH ×6 (02:47→22:05)
[2023-06-02] MEDS: VASOPRESSIN 20 UNITS in SODIUM CHL 0.9% 99 ML IV SCH ×2 (03:26→14:33)
[2023-06-02] MEDS: PANTOPRAZOLE 40mg/50ML NS AE 50 ML IV SCH ×4 (03:30→20:04)
[2023-06-02 04:07] LABS: Eosinophils # (auto) 0.4 10 ^3/uL (0-0.8); Neutrophils # (auto) 4.6 10 ^3/uL (1.6-8.6); White Blood Cell 6.6 10^3/uL (4.4-10.8)
[2023-06-02 04:11] LABS: Basophils # (auto) 0 10 ^3/uL (0-0.2); Basophils % (auto) 0.5 % (0.0-2.0); Eosinophils % (auto) 5.8 % (0.0-7.0); Hematocrit 21.2 % (41.0-53.0); Lymphocytes # (auto) 0.7 10 ^3/uL (0.4-5.4); Mean Corpuscular Hemoglobin 29.6 pg (28.0-32.0); Mean Corpuscular Hgb Conc. 33.1 g/dL (32.0-36.0); Mean Corpuscular Volume 89.5 fL (80.0-100.0); Monocytes # (auto) 0.8 10 ^3/uL (0-1.3); Monocytes % (auto) 12.9 % (0.0-12.0); Neutrophils % (auto) 70.8 % (37.0-80.0); Nucleated Red Blood Cells % 0.1 %; Red Blood Cells 2.37 10^6/uL (4.5-5.90); Red Cell Distribution Width 18.6 % (11.8-14.3)
[2023-06-02 04:29] LABS: Albumin 1.4 g/dL (3.4-5.0); Calcium 7.2 mg/dL (8.5-10.1); Magnesium 2.2 mg/dL (1.6-2.6); Potassium 3.7 mmol/L (3.5-5.1)
[2023-06-02 04:32] LABS: BUN/Creatinine Ratio 37.5 (10.0-20.0); Bilirubin, Total 0.6 mg/dL (0.2-1.0); Phosphorus 2.8 mg/dL (2.5-4.90); Total Protein 4.9 g/dL (6.4-8.2)
[2023-06-02 04:40] LABS: INR 1.26 (0.9-1.15); Partial Thromboplastin Time 57.3 SEC (24.5-34.5)
[2023-06-02] MEDS: MIDAZOLAM DRIP 50 mg/50mL 50 ML IV SCH ×2 (05:35→18:54)
[2023-06-02] MEDS: SODIUM CHLOR 0.9% PF (SALINE LOCK) 10ML VIAL/SYR IV SCH ×5 (05:48→22:30)
[2023-06-02] MEDS: HEPARIN DRIP/D5W 100UNITS/ML 250 ML IV SCH (06:19)
[2023-06-02 07:18] LABS: Base Excess 3.3 mmol/L (-2.0-2.0)
[2023-06-02] MEDS ORDERED: HEPARIN DRIP/D5W 100UNITS/ML 250 ML IV SCH ×2 (08:30→15:15)
[2023-06-02] MEDS: PHENYLEPHRINE INJ 80 MG in SODIUM CHL 0.9% 242 ML IV SCH (15:30)
[2023-06-02] MEDS ORDERED: POTASSIUM CHLORIDE IV NR ×9 (20:00)
[2023-06-02] MEDS ORDERED: [UNRECOGNIZED DRUG - OTHER] IV NR ×9 (20:00)
[2023-06-02] MEDS ORDERED: SODIUM PHOSPHATES IV NR ×9 (20:00)
[2023-06-02] MEDS: fentaNYL Drip 2500mCg/250mlNS 250 ML IV SCH (20:24)
[2023-06-02] MEDS: METOCLOPRAMIDE HCL 5MG/ml INJ 2ml VIAL IV SCH (22:30)
[2023-06-03] VITALS (107 sets, daily range): BP systolic 86–120; BP diastolic 44–66; PULSE 67–95; RESP 15–25; TEMP 98.5–99; O2SAT 94–100
[2023-06-03] MEDS: ACCU-CHEK COMFORT CURVE STRIP VI SCH ×5 (00:04→23:34)
[2023-06-03] MEDS: PANTOPRAZOLE 40mg/50ML NS AE 50 ML IV SCH ×7 (00:49→23:41)
[2023-06-03] MEDS: VASOPRESSIN 20 UNITS in SODIUM CHL 0.9% 99 ML IV SCH ×3 (01:30→23:36)
[2023-06-03] MEDS: IPRATROPIUM BROM 0.5 MG/2.5ML INH SOL NEB SCH ×5 (02:05→18:00)
[2023-06-03] MEDS: ALBUTEROL SULF 2.5 MG/0.5ML(0.5%) NEB SOLN NEB SCH ×5 (02:05→18:00)
[2023-06-03] MEDS: PROPOFOL 100 ML IV SCH ×6 (03:23→23:31)
[2023-06-03] MEDS: MIDAZOLAM DRIP 50 mg/50mL 50 ML IV SCH ×3 (03:23→22:43)
[2023-06-03] MEDS: fentaNYL Drip 2500mCg/250mlNS 250 ML IV SCH ×3 (03:26→17:55)
[2023-06-03 03:35] LABS: Eosinophils # (auto) 0.4 10 ^3/uL (0-0.8); Hemoglobin 8.1 g/dL (13.5-17.5)
[2023-06-03 03:37] LABS: Basophils # (auto) 0.1 10 ^3/uL (0-0.2); Basophils % (auto) 0.9 % (0.0-2.0); Eosinophils % (auto) 6.7 % (0.0-7.0); Hematocrit 24.1 % (41.0-53.0); Lymphocytes # (auto) 0.4 10 ^3/uL (0.4-5.4); Lymphocytes % (auto) 7.5 % (10.0-50.0); Mean Corpuscular Hemoglobin 30.1 pg (28.0-32.0); Mean Corpuscular Hgb Conc. 33.6 g/dL (32.0-36.0); Mean Corpuscular Volume 89.5 fL (80.0-100.0); Monocytes # (auto) 0.7 10 ^3/uL (0-1.3); Monocytes % (auto) 11.3 % (0.0-12.0); Neutrophils # (auto) 4.3 10 ^3/uL (1.6-8.6); Neutrophils % (auto) 73.6 % (37.0-80.0); Red Blood Cells 2.69 10^6/uL (4.5-5.90); Red Cell Distribution Width 16.9 % (11.8-14.3); White Blood Cell 5.9 10^3/uL (4.4-10.8)
[2023-06-03 04:05] LABS: Albumin 1.5 g/dL (3.4-5.0); Calcium 7.2 mg/dL (8.5-10.1); Magnesium 2.1 mg/dL (1.6-2.6); Potassium 4.2 mmol/L (3.5-5.1)
[2023-06-03 04:09] LABS: BUN/Creatinine Ratio 39.4 (10.0-20.0); Bilirubin, Total 1.1 mg/dL (0.2-1.0); Phosphorus 3.2 mg/dL (2.5-4.90); Total Protein 5.2 g/dL (6.4-8.2)
[2023-06-03] MEDS: InsuLIN REG 1unit/0.01ml Soln (100units/ml) SC SCH ×5 (05:49→23:36)
[2023-06-03] MEDS: SODIUM CHLOR 0.9% PF (SALINE LOCK) 10ML VIAL/SYR IV SCH ×5 (05:50→21:02)
[2023-06-03] MEDS: METOCLOPRAMIDE HCL 5MG/ml INJ 2ml VIAL IV SCH ×3 (06:08→21:01)
[2023-06-03] MEDS: PHENYLEPHRINE INJ 80 MG in SODIUM CHL 0.9% 242 ML IV SCH (15:30)
[2023-06-03] MEDS ORDERED: TPN PER PHARMACY IV NR ×9 (20:00)
[2023-06-04] VITALS (109 sets, daily range): BP systolic 76–149; BP diastolic 34–75; PULSE 69–96; RESP 7–29; TEMP 98.5–99.7; O2SAT 93–100
[2023-06-04] MEDS: ALBUTEROL SULF 2.5 MG/0.5ML(0.5%) NEB SOLN NEB SCH ×7 (00:28→22:12)
[2023-06-04] MEDS: IPRATROPIUM BROM 0.5 MG/2.5ML INH SOL NEB SCH ×7 (00:28→22:12)
[2023-06-04] MEDS: fentaNYL Drip 2500mCg/250mlNS 250 ML IV SCH ×3 (00:33→16:14)
[2023-06-04] MEDS: PROPOFOL 100 ML IV SCH ×5 (02:51→18:34)
[2023-06-04 04:29] LABS: Basophils # (auto) 0 10 ^3/uL (0-0.2); Hematocrit 22.6 % (41.0-53.0); Hemoglobin 7.5 g/dL (13.5-17.5); Lymphocytes # (auto) 0.3 10 ^3/uL (0.4-5.4); Red Cell Distribution Width 17.6 % (11.8-14.3)
[2023-06-04 04:30] LABS: Basophils % (auto) 0.5 % (0.0-2.0); Eosinophils # (auto) 0.4 10 ^3/uL (0-0.8); Eosinophils % (auto) 5.7 % (0.0-7.0); Lymphocytes % (auto) 5.2 % (10.0-50.0); Mean Corpuscular Hemoglobin 30.4 pg (28.0-32.0); Mean Corpuscular Hgb Conc. 33.3 g/dL (32.0-36.0); Mean Corpuscular Volume 91.4 fL (80.0-100.0); Monocytes # (auto) 0.9 10 ^3/uL (0-1.3); Monocytes % (auto) 13.4 % (0.0-12.0); Neutrophils % (auto) 75.2 % (37.0-80.0); Red Blood Cells 2.47 10^6/uL (4.5-5.90); White Blood Cell 6.6 10^3/uL (4.4-10.8)
[2023-06-04 04:41] LABS: Albumin 1.4 g/dL (3.4-5.0); Calcium 7.3 mg/dL (8.5-10.1); Magnesium 2.2 mg/dL (1.6-2.6); Potassium 5.3 mmol/L (3.5-5.1)
[2023-06-04 04:45] LABS: BUN/Creatinine Ratio 39.7 (10.0-20.0); Bilirubin, Total 1.1 mg/dL (0.2-1.0); Phosphorus 4.1 mg/dL (2.5-4.90); Total Protein 5.2 g/dL (6.4-8.2)
[2023-06-04] MEDS: InsuLIN REG 1unit/0.01ml Soln (100units/ml) SC SCH ×3 (05:29→17:37)
[2023-06-04] MEDS: ACCU-CHEK COMFORT CURVE STRIP VI SCH ×3 (05:30→17:37)
[2023-06-04] MEDS: METOCLOPRAMIDE HCL 5MG/ml INJ 2ml VIAL IV SCH ×3 (05:31→21:36)
[2023-06-04] MEDS: PANTOPRAZOLE 40mg/50ML NS AE 50 ML IV SCH ×4 (05:31→22:23)
[2023-06-04] MEDS: NOREPINEPHRINE BITARTRATE 16 MG in SODIUM CHL 0.9% 234 ML IV SCH (05:32)
[2023-06-04] MEDS: SODIUM CHLOR 0.9% PF (SALINE LOCK) 10ML VIAL/SYR IV SCH ×5 (05:32→21:36)
[2023-06-04 07:49] LABS: Base Excess 1.6 mmol/L (-2.0-2.0)
[2023-06-04] MEDS: MIDAZOLAM DRIP 50 mg/50mL 50 ML IV SCH (10:25)
[2023-06-04] MEDS: VASOPRESSIN 20 UNITS in SODIUM CHL 0.9% 99 ML IV SCH ×2 (11:01→22:08)
[2023-06-04] MEDS ORDERED: AMINO ACID INFUSION IN D10W 1,000 ML IV NR (11:45)
[2023-06-04] MEDS ORDERED: FUROSEMIDE 40 MG/4 ML VIAL IV ONE (14:45)
[2023-06-04] MEDS: PHENYLEPHRINE INJ 80 MG in SODIUM CHL 0.9% 242 ML IV SCH (15:30)
[2023-06-04] MEDS: TPN PER PHARMACY IV NR ×10 (21:20)
[2023-06-05] VITALS (104 sets, daily range): BP systolic 98–143; BP diastolic 50–72; PULSE 70–100; RESP 10–30; TEMP 98.7–99.6; O2SAT 94–100
[2023-06-05] MEDS: PROPOFOL 100 ML IV SCH ×3 (00:04→12:05)
[2023-06-05] MEDS: ACCU-CHEK COMFORT CURVE STRIP VI SCH ×4 (00:04→18:00)
[2023-06-05] MEDS: fentaNYL Drip 2500mCg/250mlNS 250 ML IV SCH ×2 (00:36→12:06)
[2023-06-05] MEDS: IPRATROPIUM BROM 0.5 MG/2.5ML INH SOL NEB SCH ×6 (02:06→22:18)
[2023-06-05] MEDS: ALBUTEROL SULF 2.5 MG/0.5ML(0.5%) NEB SOLN NEB SCH ×6 (02:06→22:18)
[2023-06-05] MEDS: PANTOPRAZOLE 40mg/50ML NS AE 50 ML IV SCH ×4 (03:12→17:55)
[2023-06-05] MEDS: MIDAZOLAM DRIP 50 mg/50mL 50 ML IV SCH ×2 (03:12→17:55)
[2023-06-05 04:25] LABS: Basophils # (auto) 0 10 ^3/uL (0-0.2); Eosinophils # (auto) 0.4 10 ^3/uL (0-0.8); Hematocrit 23.1 % (41.0-53.0); Hemoglobin 7.7 g/dL (13.5-17.5); Mean Corpuscular Hemoglobin 30.6 pg (28.0-32.0); Mean Corpuscular Hgb Conc. 33.2 g/dL (32.0-36.0); Monocytes # (auto) 1.1 10 ^3/uL (0-1.3); Neutrophils # (auto) 4.7 10 ^3/uL (1.6-8.6)
[2023-06-05 04:27] LABS: Basophils % (auto) 0.7 % (0.0-2.0); Eosinophils % (auto) 5.8 % (0.0-7.0); Lymphocytes # (auto) 0.4 10 ^3/uL (0.4-5.4); Lymphocytes % (auto) 6.7 % (10.0-50.0); Monocytes % (auto) 16.5 % (0.0-12.0); Neutrophils % (auto) 70.3 % (37.0-80.0); Red Blood Cells 2.52 10^6/uL (4.5-5.90); Red Cell Distribution Width 17.9 % (11.8-14.3); White Blood Cell 6.6 10^3/uL (4.4-10.8)
[2023-06-05 04:34] LABS: Albumin 1.5 g/dL (3.4-5.0); Calcium 7.5 mg/dL (8.5-10.1); Potassium 4.8 mmol/L (3.5-5.1)
[2023-06-05 04:38] LABS: BUN/Creatinine Ratio 34.6 (10.0-20.0); Bilirubin, Total 1.3 mg/dL (0.2-1.0); Phosphorus 3.3 mg/dL (2.5-4.90); Total Protein 5.6 g/dL (6.4-8.2)
[2023-06-05] MEDS: InsuLIN REG 1unit/0.01ml Soln (100units/ml) SC SCH ×4 (05:46→18:00)
[2023-06-05] MEDS: NOREPINEPHRINE BITARTRATE 16 MG in SODIUM CHL 0.9% 234 ML IV SCH ×2 (05:54→17:59)
[2023-06-05] MEDS: METOCLOPRAMIDE HCL 5MG/ml INJ 2ml VIAL IV SCH ×3 (05:56→22:07)
[2023-06-05] MEDS: SODIUM CHLOR 0.9% PF (SALINE LOCK) 10ML VIAL/SYR IV SCH ×5 (06:01→22:07)
[2023-06-05] MEDS: VASOPRESSIN 20 UNITS in SODIUM CHL 0.9% 99 ML IV SCH (09:15)
[2023-06-05] MEDS: FUROSEMIDE 40 MG/4 ML VIAL IV SCH ×2 (09:47→22:07)
[2023-06-05] MEDS ORDERED: FUROSEMIDE 40 MG/4 ML VIAL IV SCH (10:00)
[2023-06-05] MEDS ORDERED: EPINEPHrine HCL 1 MG/10 ML SYRG ONE (15:03)
[2023-06-05] MEDS: PHENYLEPHRINE INJ 80 MG in SODIUM CHL 0.9% 242 ML IV SCH (15:30)
[2023-06-05] MEDS ORDERED: TPN PER PHARMACY IV NR ×9 (20:00)
[2023-06-06] VITALS (108 sets, daily range): BP systolic 85–144; BP diastolic 41–66; PULSE 77–104; RESP 8–27; TEMP 98.6–98.9; O2SAT 92–100
[2023-06-06] MEDS: fentaNYL Drip 2500mCg/250mlNS 250 ML IV SCH ×2 (00:32→13:06)
[2023-06-06] MEDS: PROPOFOL 100 ML IV SCH ×5 (00:33→21:27)
[2023-06-06] MEDS: ACCU-CHEK COMFORT CURVE STRIP VI SCH ×4 (00:46→18:23)
[2023-06-06] MEDS: InsuLIN REG 1unit/0.01ml Soln (100units/ml) SC SCH ×4 (00:47→18:24)
[2023-06-06] MEDS: PANTOPRAZOLE 40mg/50ML NS AE 50 ML IV SCH ×5 (01:51→20:39)
[2023-06-06] MEDS: ALBUTEROL SULF 2.5 MG/0.5ML(0.5%) NEB SOLN NEB SCH ×6 (02:20→22:13)
[2023-06-06] MEDS: IPRATROPIUM BROM 0.5 MG/2.5ML INH SOL NEB SCH ×6 (02:20→22:13)
[2023-06-06 04:18] LABS: Basophils # (auto) 0 10 ^3/uL (0-0.2); Eosinophils # (auto) 0.2 10 ^3/uL (0-0.8); Hemoglobin 8.3 g/dL (13.5-17.5); Lymphocytes # (auto) 0.4 10 ^3/uL (0.4-5.4); Monocytes % (auto) 13.3 % (0.0-12.0); Neutrophils # (auto) 5.8 10 ^3/uL (1.6-8.6); Nucleated Red Blood Cells % 0.1 %; White Blood Cell 7.4 10^3/uL (4.4-10.8)
[2023-06-06 04:21] LABS: Basophils % (auto) 0.2 % (0.0-2.0); Eosinophils % (auto) 2.9 % (0.0-7.0); Hematocrit 24.9 % (41.0-53.0); Lymphocytes % (auto) 5.1 % (10.0-50.0); Mean Corpuscular Hemoglobin 30.3 pg (28.0-32.0); Mean Corpuscular Hgb Conc. 33.3 g/dL (32.0-36.0); Neutrophils % (auto) 78.5 % (37.0-80.0); Red Blood Cells 2.73 10^6/uL (4.5-5.90)
[2023-06-06] MEDS: MIDAZOLAM DRIP 50 mg/50mL 50 ML IV SCH ×2 (04:24→15:07)
[2023-06-06 04:32] LABS: Potassium 3.7 mmol/L (3.5-5.1)
[2023-06-06 04:42] LABS: Albumin 1.5 g/dL (3.4-5.0); BUN/Creatinine Ratio 34.1 (10.0-20.0); Bilirubin, Total 1.8 mg/dL (0.2-1.0); Calcium 7.9 mg/dL (8.5-10.1); Magnesium 1.8 mg/dL (1.6-2.6); Phosphorus 2.8 mg/dL (2.5-4.90); Total Protein 6.1 g/dL (6.4-8.2)
[2023-06-06] MEDS: SODIUM CHLOR 0.9% PF (SALINE LOCK) 10ML VIAL/SYR IV SCH ×5 (06:57→21:36)
[2023-06-06] MEDS: METOCLOPRAMIDE HCL 5MG/ml INJ 2ml VIAL IV SCH ×3 (06:58→21:33)
[2023-06-06] MEDS: VASOPRESSIN 20 UNITS in SODIUM CHL 0.9% 99 ML IV SCH ×3 (07:11→17:58)
[2023-06-06 07:59] LABS: Base Excess 3.8 mmol/L (-2.0-2.0)
[2023-06-06] MEDS: FUROSEMIDE 40 MG/4 ML VIAL IV SCH ×2 (10:52→22:15)
[2023-06-06 10:53] LABS: INR 1.11 (0.9-1.15); Partial Thromboplastin Time 23.2 SEC (24.5-34.5); Prothrombin Time 11.6 sec (9.3-11.8)
[2023-06-06 14:17] LABS: Urine Bacteria FEW /hpf (None Seen); Urine Blood Negative /uL (Negative); Urine Clarity Clear (Clear); Urine Color Yellow (Yellow); Urine Hyaline Cast FEW /lpf (0 - 2); Urine Mucus FEW (None Seen); Urine Protein, UAD Negative (Negative); Urine Specific Gravity 1.011 (1.001-1.035); Urine Urobilinogen Normal (Negative); Urine WBC <1 /hpf (0 - 3)
[2023-06-06] MEDS: PHENYLEPHRINE INJ 80 MG in SODIUM CHL 0.9% 242 ML IV SCH (15:07)
[2023-06-06] MEDS ORDERED: PROPOFOL 100 ML IV ONE (17:35)
[2023-06-06] MEDS: TPN PER PHARMACY IV NR ×10 (19:39)
[2023-06-06] MEDS ORDERED: TPN PER PHARMACY IV NR ×8 (20:00)
[2023-06-06] MEDS: NOREPINEPHRINE BITARTRATE 16 MG in SODIUM CHL 0.9% 234 ML IV SCH (21:29)
[2023-06-07] VITALS (106 sets, daily range): BP systolic 95–150; BP diastolic 44–77; PULSE 59–149; RESP 0–25; TEMP 97.8–98.9; O2SAT 62–100
[2023-06-07] MEDS: ACCU-CHEK COMFORT CURVE STRIP VI SCH ×4 (00:08→18:00)
[2023-06-07] MEDS: InsuLIN REG 1unit/0.01ml Soln (100units/ml) SC SCH ×4 (00:12→18:02)
[2023-06-07] MEDS: fentaNYL Drip 2500mCg/250mlNS 250 ML IV SCH ×2 (00:36→10:46)
[2023-06-07] MEDS: PANTOPRAZOLE 40mg/50ML NS AE 50 ML IV SCH ×4 (01:51→21:07)
[2023-06-07] MEDS: ALBUTEROL SULF 2.5 MG/0.5ML(0.5%) NEB SOLN NEB SCH ×6 (02:15→22:06)
[2023-06-07] MEDS: IPRATROPIUM BROM 0.5 MG/2.5ML INH SOL NEB SCH ×6 (02:15→22:06)
[2023-06-07] MEDS: PROPOFOL 100 ML IV SCH ×5 (02:39→21:20)
[2023-06-07 04:29] LABS: Hematocrit 24.4 % (41.0-53.0); Mean Corpuscular Hemoglobin 29.8 pg (28.0-32.0); Mean Corpuscular Hgb Conc. 32.7 g/dL (32.0-36.0); Red Blood Cells 2.68 10^6/uL (4.5-5.90); Red Cell Distribution Width 17.7 % (11.8-14.3); White Blood Cell 5.8 10^3/uL (4.4-10.8)
[2023-06-07 04:32] LABS: Basophils % (manual) 0 (0.0-2.0); Blast Cells 0; Metamyelocytes % 0; Myelocytes % 0; Promyelocytes % 0; Reactive Lymphocytes 0
[2023-06-07 04:36] LABS: INR 1.17 (0.9-1.15); Partial Thromboplastin Time 30.1 SEC (24.5-34.5); Prothrombin Time 12.2 sec (9.3-11.8)
[2023-06-07 04:39] LABS: Albumin 1.5 g/dL (3.4-5.0); Calcium 8.1 mg/dL (8.5-10.1); Magnesium 1.8 mg/dL (1.6-2.6); Potassium 3.7 mmol/L (3.5-5.1)
[2023-06-07 04:45] LABS: BUN/Creatinine Ratio 36.9 (10.0-20.0); Bilirubin, Total 1.8 mg/dL (0.2-1.0); Phosphorus 3.7 mg/dL (2.5-4.90); Total Protein 6.4 g/dL (6.4-8.2)
[2023-06-07 04:50] LABS: Band Neutrophils % (manual) 1; Lymphocytes % (manual) 14 (10.0-50.0)
[2023-06-07 04:51] LABS: Eosinophils % (manual) 2 (0-7); Monocytes % (manual) 28 (0-12); Platelet Estimate Adequate
[2023-06-07] MEDS: VASOPRESSIN 20 UNITS in SODIUM CHL 0.9% 99 ML IV SCH ×2 (05:43→16:50)
[2023-06-07] MEDS: METOCLOPRAMIDE HCL 5MG/ml INJ 2ml VIAL IV SCH ×3 (05:49→21:17)
[2023-06-07] MEDS: SODIUM CHLOR 0.9% PF (SALINE LOCK) 10ML VIAL/SYR IV SCH ×5 (05:50→21:18)
[2023-06-07] MEDS ORDERED: dilTIAZem 25 MG/5 ML VIAL IV ONE (06:45)
[2023-06-07 06:56] LABS: Base Excess 5.5 mmol/L (-2.0-2.0)
[2023-06-07] MEDS: MIDAZOLAM DRIP 50 mg/50mL 50 ML IV SCH ×2 (07:29→18:39)
[2023-06-07] MEDS ORDERED: HYDROmorphone HCL 2 MG/ML VL/or syr ONE (13:18)
[2023-06-07] MEDS ORDERED: fentaNYL CITRATE 100 MCG/2 ML VL ONE (13:19)
[2023-06-07] MEDS ORDERED: MIDAZOLAM HCL 2MG/2ML 2ml VIAL (1mg/ml) ONE (13:19)
[2023-06-07] MEDS: AMIODARONE HCL 200 MG TAB PO SCH ×2 (15:15→21:18)
[2023-06-07] MEDS: PHENYLEPHRINE INJ 80 MG in SODIUM CHL 0.9% 242 ML IV SCH (15:22)
[2023-06-07] MEDS: FUROSEMIDE 40 MG/4 ML VIAL IV SCH ×2 (15:25→21:17)
[2023-06-07] MEDS ORDERED: TPN PER PHARMACY IV NR ×8 (20:00)
[2023-06-08] VITALS (100 sets, daily range): BP systolic 85–145; BP diastolic 39–63; PULSE 44–148; RESP 15–32; TEMP 96.8–99.3; O2SAT 91–100
[2023-06-08] MEDS: ACCU-CHEK COMFORT CURVE STRIP VI SCH ×4 (00:18→17:51)
[2023-06-08] MEDS: InsuLIN REG 1unit/0.01ml Soln (100units/ml) SC SCH ×4 (00:21→18:00)
[2023-06-08] MEDS: PROPOFOL 100 ML IV SCH ×5 (00:22→20:21)
[2023-06-08] MEDS: IPRATROPIUM BROM 0.5 MG/2.5ML INH SOL NEB SCH ×6 (02:01→22:25)
[2023-06-08] MEDS: ALBUTEROL SULF 2.5 MG/0.5ML(0.5%) NEB SOLN NEB SCH ×6 (02:01→22:25)
[2023-06-08] MEDS: PANTOPRAZOLE 40mg/50ML NS AE 50 ML IV SCH (02:13)
[2023-06-08] MEDS: fentaNYL Drip 2500mCg/250mlNS 250 ML IV SCH ×2 (02:14→17:11)
[2023-06-08] MEDS: VASOPRESSIN 20 UNITS in SODIUM CHL 0.9% 99 ML IV SCH ×2 (03:57→14:33)
[2023-06-08 04:12] LABS: Basophils # (auto) 0 10 ^3/uL (0-0.2); Eosinophils # (auto) 0.3 10 ^3/uL (0-0.8); Hemoglobin 8.1 g/dL (13.5-17.5); Lymphocytes # (auto) 0.6 10 ^3/uL (0.4-5.4); Neutrophils # (auto) 3.1 10 ^3/uL (1.6-8.6)
[2023-06-08 04:15] LABS: Basophils % (auto) 0.6 % (0.0-2.0); Eosinophils % (auto) 6.4 % (0.0-7.0); Hematocrit 24.4 % (41.0-53.0); Lymphocytes % (auto) 11.6 % (10.0-50.0); Mean Corpuscular Hemoglobin 30.4 pg (28.0-32.0); Mean Corpuscular Hgb Conc. 33.3 g/dL (32.0-36.0); Mean Corpuscular Volume 91.3 fL (80.0-100.0); Monocytes # (auto) 0.9 10 ^3/uL (0-1.3); Monocytes % (auto) 17.6 % (0.0-12.0); Neutrophils % (auto) 63.8 % (37.0-80.0); Red Blood Cells 2.68 10^6/uL (4.5-5.90); Red Cell Distribution Width 17.8 % (11.8-14.3); White Blood Cell 4.9 10^3/uL (4.4-10.8)
[2023-06-08] MEDS: MIDAZOLAM DRIP 50 mg/50mL 50 ML IV SCH ×2 (04:18→15:22)
[2023-06-08 04:29] LABS: Potassium 3.7 mmol/L (3.5-5.1)
[2023-06-08 04:34] LABS: Albumin 1.4 g/dL (3.4-5.0); BUN/Creatinine Ratio 39.5 (10.0-20.0); Bilirubin, Total 1.8 mg/dL (0.2-1.0); Magnesium 2.3 mg/dL (1.6-2.6); Phosphorus 4.3 mg/dL (2.5-4.90); Total Protein 6.2 g/dL (6.4-8.2)
[2023-06-08] MEDS: METOCLOPRAMIDE HCL 5MG/ml INJ 2ml VIAL IV SCH ×3 (05:24→21:22)
[2023-06-08] MEDS: SODIUM CHLOR 0.9% PF (SALINE LOCK) 10ML VIAL/SYR IV SCH ×5 (05:38→21:22)
[2023-06-08] MEDS: NOREPINEPHRINE BITARTRATE 16 MG in SODIUM CHL 0.9% 234 ML IV SCH (06:19)
[2023-06-08 07:54] LABS: Base Excess 4.7 mmol/L (-2.0-2.0)
[2023-06-08] MEDS ORDERED: AMIODARONE 450mg/250ml AE 250 ML IV SCH (10:45)
[2023-06-08] MEDS ORDERED: AMIODARONE BOLUS KIT 100 ML IV ONE (10:45)
[2023-06-08] MEDS: POTASSIUM CHL 20MEQ/100ML 100 ML IV SCH ×2 (10:49→12:14)
[2023-06-08] MEDS ORDERED: MAGNESIUM SULFATE 1GM/100ML 100 ML IV ONE (11:00)
[2023-06-08] MEDS ORDERED: DIGOXIN (250MCG/ML) 2 ML AMPULE IV ONE ×3 (11:15→15:15)
[2023-06-08] MEDS: ALBUMIN 25% 100 ML IV SCH ×3 (11:15→17:48)
[2023-06-08] MEDS ORDERED: IBUPROFEN 100MG/5ML ORAL SUSP 100 MG/5 ML UD GT PRN (11:15)
[2023-06-08] MEDS: FUROSEMIDE 40 MG/4 ML VIAL IV SCH ×2 (11:43→21:22)
[2023-06-08] MEDS: PHENYLEPHRINE INJ 80 MG in SODIUM CHL 0.9% 242 ML IV SCH (16:54)
[2023-06-08] MEDS: AMIODARONE 450mg/250ml AE 250 ML IV SCH (17:00)
[2023-06-08] MEDS ORDERED: TPN PER PHARMACY IV NR ×8 (20:00)
[2023-06-08 20:31] LABS: Magnesium 2.5 mg/dL (1.6-2.6); Potassium 4.5 mmol/L (3.5-5.1)
[2023-06-08] MEDS: PANTOPRAZOLE 40 MG/10 ML VIAL INJ IV SCH (21:22)
[2023-06-09] VITALS (102 sets, daily range): BP systolic 99–145; BP diastolic 36–73; PULSE 54–85; RESP 17–30; TEMP 96.6–100.4; O2SAT 94–100
[2023-06-09] MEDS: InsuLIN REG 1unit/0.01ml Soln (100units/ml) SC SCH ×5 (00:20→23:36)
[2023-06-09] MEDS: ACCU-CHEK COMFORT CURVE STRIP VI SCH ×5 (00:21→23:08)
[2023-06-09] MEDS: PROPOFOL 100 ML IV SCH ×7 (00:36→22:10)
[2023-06-09] MEDS: VASOPRESSIN 20 UNITS in SODIUM CHL 0.9% 99 ML IV SCH ×2 (01:49→13:18)
[2023-06-09] MEDS: IPRATROPIUM BROM 0.5 MG/2.5ML INH SOL NEB SCH ×6 (02:44→22:15)
[2023-06-09] MEDS: ALBUTEROL SULF 2.5 MG/0.5ML(0.5%) NEB SOLN NEB SCH ×6 (02:44→22:15)
[2023-06-09] MEDS: ALBUMIN 25% 100 ML IV SCH (03:26)
[2023-06-09] MEDS: SODIUM CHLOR 0.9% PF (SALINE LOCK) 10ML VIAL/SYR IV SCH ×5 (05:03→20:10)
[2023-06-09] MEDS: METOCLOPRAMIDE HCL 5MG/ml INJ 2ml VIAL IV SCH ×3 (05:03→20:09)
[2023-06-09 05:40] LABS: BUN/Creatinine Ratio 45.6 (10.0-20.0); Calcium 7.8 mg/dL (8.5-10.1); Magnesium 2.4 mg/dL (1.6-2.6); Potassium 4.1 mmol/L (3.5-5.1)
[2023-06-09 05:43] LABS: Bilirubin, Total 1.6 mg/dL (0.2-1.0); Phosphorus 3.1 mg/dL (2.5-4.90); Total Protein 6.7 g/dL (6.4-8.2)
[2023-06-09] MEDS: AMIODARONE 450mg/250ml AE 250 ML IV SCH ×2 (07:45→22:45)
[2023-06-09] MEDS: FUROSEMIDE 40 MG/4 ML VIAL IV SCH ×2 (09:50→20:10)
[2023-06-09] MEDS: PANTOPRAZOLE 40 MG/10 ML VIAL INJ IV SCH ×2 (09:50→20:10)
[2023-06-09] MEDS: PHENYLEPHRINE INJ 80 MG in SODIUM CHL 0.9% 242 ML IV SCH (15:30)
[2023-06-09] MEDS: NOREPINEPHRINE BITARTRATE 16 MG in SODIUM CHL 0.9% 234 ML IV SCH (16:45)
[2023-06-09] MEDS ORDERED: TPN PER PHARMACY IV NR ×8 (20:00)
[2023-06-10] VITALS (73 sets, daily range): BP systolic 87–166; BP diastolic 51–83; PULSE 60–135; RESP 15–29; TEMP 98.1–100.4; O2SAT 89–100
[2023-06-10] MEDS: VASOPRESSIN 20 UNITS in SODIUM CHL 0.9% 99 ML IV SCH ×3 (00:25→22:39)
[2023-06-10] MEDS: ALBUTEROL SULF 2.5 MG/0.5ML(0.5%) NEB SOLN NEB SCH ×6 (02:11→22:50)
[2023-06-10] MEDS: IPRATROPIUM BROM 0.5 MG/2.5ML INH SOL NEB SCH ×6 (02:11→22:50)
[2023-06-10] MEDS: hydrALAZINE HCL 20 MG/ML VL IV PRN (02:51)
[2023-06-10] MEDS: PROPOFOL 100 ML IV SCH ×6 (02:51→20:42)
[2023-06-10 04:08] LABS: Albumin 1.9 g/dL (3.4-5.0); Calcium 8.1 mg/dL (8.5-10.1); Magnesium 2.2 mg/dL (1.6-2.6)
[2023-06-10 04:12] LABS: BUN/Creatinine Ratio 45.2 (10.0-20.0); Bilirubin, Total 1.6 mg/dL (0.2-1.0); Phosphorus 3.4 mg/dL (2.5-4.90)
[2023-06-10] MEDS: METOCLOPRAMIDE HCL 5MG/ml INJ 2ml VIAL IV SCH ×3 (04:25→22:16)
[2023-06-10] MEDS: AMIODARONE 450mg/250ml AE 250 ML IV SCH ×2 (04:26→20:03)
[2023-06-10] MEDS: SODIUM CHLOR 0.9% PF (SALINE LOCK) 10ML VIAL/SYR IV SCH ×5 (04:26→22:01)
[2023-06-10] MEDS: ACCU-CHEK COMFORT CURVE STRIP VI SCH ×4 (04:38→23:40)
[2023-06-10] MEDS: InsuLIN REG 1unit/0.01ml Soln (100units/ml) SC SCH ×4 (05:23→23:40)
[2023-06-10] MEDS: MIDAZOLAM DRIP 50 mg/50mL 50 ML IV SCH (06:00)
[2023-06-10] MEDS: FUROSEMIDE 40 MG/4 ML VIAL IV SCH ×2 (09:24→22:15)
[2023-06-10] MEDS: PANTOPRAZOLE 40 MG/10 ML VIAL INJ IV SCH ×2 (09:25→22:15)
[2023-06-10] MEDS: fentaNYL Drip 2500mCg/250mlNS 250 ML IV SCH (10:46)
[2023-06-10] MEDS: PHENYLEPHRINE INJ 80 MG in SODIUM CHL 0.9% 242 ML IV SCH (15:30)
[2023-06-10] MEDS: METOPROLOL TARTRATE 25 MG TAB PO SCH ×2 (16:43→22:16)
[2023-06-10] MEDS: NOREPINEPHRINE BITARTRATE 16 MG in SODIUM CHL 0.9% 234 ML IV SCH (16:45)
[2023-06-10] MEDS ORDERED: TPN PER PHARMACY IV NR ×8 (20:00)
[2023-06-11] VITALS (98 sets, daily range): BP systolic 92–141; BP diastolic 50–79; PULSE 60–114; RESP 12–26; TEMP 98.4–100.2; O2SAT 91–100
[2023-06-11] MEDS: PROPOFOL 100 ML IV SCH ×5 (00:38→19:34)
[2023-06-11] MEDS: fentaNYL Drip 2500mCg/250mlNS 250 ML IV SCH ×2 (00:45→15:12)
[2023-06-11] MEDS: ALBUTEROL SULF 2.5 MG/0.5ML(0.5%) NEB SOLN NEB SCH ×5 (02:27→18:58)
[2023-06-11] MEDS: IPRATROPIUM BROM 0.5 MG/2.5ML INH SOL NEB SCH ×5 (02:27→18:58)
[2023-06-11] MEDS: SODIUM CHLOR 0.9% PF (SALINE LOCK) 10ML VIAL/SYR IV SCH ×5 (05:51→21:06)
[2023-06-11] MEDS: InsuLIN REG 1unit/0.01ml Soln (100units/ml) SC SCH ×3 (05:51→17:36)
[2023-06-11] MEDS: ACCU-CHEK COMFORT CURVE STRIP VI SCH ×3 (05:52→17:35)
[2023-06-11] MEDS: METOCLOPRAMIDE HCL 5MG/ml INJ 2ml VIAL IV SCH ×3 (05:55→21:05)
[2023-06-11] MEDS: MIDAZOLAM DRIP 50 mg/50mL 50 ML IV SCH (06:00)
[2023-06-11] MEDS ORDERED: ACETAMINOPHEN 650 mg PER 20.3 mL UD GT PRN (08:45)
[2023-06-11 08:51] LABS: Mean Corpuscular Hemoglobin 29.7 pg (28.0-32.0)
[2023-06-11 08:55] LABS: Hematocrit 24.5 % (41.0-53.0); Hemoglobin 8.1 g/dL (13.5-17.5); Mean Corpuscular Hgb Conc. 32.9 g/dL (32.0-36.0); Mean Corpuscular Volume 90.2 fL (80.0-100.0); Red Blood Cells 2.72 10^6/uL (4.5-5.90); White Blood Cell 5.8 10^3/uL (4.4-10.8)
[2023-06-11 09:05] LABS: Basophils % (manual) 0 (0.0-2.0); Blast Cells 0; Metamyelocytes % 0; Myelocytes % 0; Promyelocytes % 0; Reactive Lymphocytes 0
[2023-06-11 09:12] LABS: Hematocrit 24.3 % (41.0-53.0); Hemoglobin 8.1 g/dL (13.5-17.5); Mean Corpuscular Hemoglobin 29.5 pg (28.0-32.0); Mean Corpuscular Hgb Conc. 33.4 g/dL (32.0-36.0); Mean Corpuscular Volume 88.4 fL (80.0-100.0); Red Blood Cells 2.75 10^6/uL (4.5-5.90); Red Cell Distribution Width 17.6 % (11.8-14.3); White Blood Cell 6.5 10^3/uL (4.4-10.8)
[2023-06-11 09:15] LABS: Basophils % (manual) 0 (0.0-2.0); Blast Cells 0; Metamyelocytes % 0; Myelocytes % 0; Promyelocytes % 0; Reactive Lymphocytes 0
[2023-06-11] MEDS: VASOPRESSIN 20 UNITS in SODIUM CHL 0.9% 99 ML IV SCH ×2 (09:46→20:53)
[2023-06-11 09:58] LABS: Potassium 4.1 mmol/L (3.5-5.1)
[2023-06-11 10:04] LABS: Hepatitis B Surface Antibody Negative (Negative)
[2023-06-11 10:10] LABS: Albumin 1.8 g/dL (3.4-5.0); BUN/Creatinine Ratio 49.3 (10.0-20.0); Bilirubin, Total 1.3 mg/dL (0.2-1.0); Calcium 7.8 mg/dL (8.5-10.1); Magnesium 2.3 mg/dL (1.6-2.6); Phosphorus 3.4 mg/dL (2.5-4.90); Total Protein 6.4 g/dL (6.4-8.2)
[2023-06-11] MEDS: FUROSEMIDE 40 MG/4 ML VIAL IV SCH ×2 (10:11→21:05)
[2023-06-11] MEDS: PANTOPRAZOLE 40 MG/10 ML VIAL INJ IV SCH ×2 (10:12→21:05)
[2023-06-11] MEDS: METOPROLOL TARTRATE 25 MG TAB PO SCH ×2 (10:12→21:06)
[2023-06-11 10:25] LABS: Hepatitis A Total Antibody Positive (Negative)
[2023-06-11] MEDS ORDERED: AMIODARONE HCL 200 MG TAB PO ONE (11:00)
[2023-06-11 12:35] LABS: Band Neutrophils % (manual) 5; Eosinophils % (manual) 3 (0-7); Lymphocytes % (manual) 17 (10.0-50.0); Monocytes % (manual) 9 (0-12)
[2023-06-11 12:36] LABS: Platelet Estimate Adequate
[2023-06-11 12:40] LABS: Band Neutrophils % (manual) 11; Eosinophils % (manual) 3 (0-7); Lymphocytes % (manual) 18 (10.0-50.0); Monocytes % (manual) 11 (0-12)
[2023-06-11 12:41] LABS: Platelet Estimate Adequate
[2023-06-11 13:10] LABS: Hepatitis C Antibody Negative (Negative)
[2023-06-11 13:14] LABS: Hepatitis B Core Total AB Negative (Negative); Hepatitis B Surface Antigen Negative (Negative)
[2023-06-11] MEDS ORDERED: ENOXAPARIN SOD 40 MG/0.4 ML SYRINGE SC ONE (14:00)
[2023-06-11] MEDS: PHENYLEPHRINE INJ 80 MG in SODIUM CHL 0.9% 242 ML IV SCH (15:30)
[2023-06-11] MEDS: NOREPINEPHRINE BITARTRATE 16 MG in SODIUM CHL 0.9% 234 ML IV SCH (16:45)
[2023-06-11] MEDS ORDERED: TPN PER PHARMACY IV NR ×9 (20:00)
[2023-06-11] MEDS ORDERED: AMIODARONE HCL 200 MG TAB PO SCH (22:00)
[2023-06-12] MEDS ORDERED: ENOXAPARIN SOD 40 MG/0.4 ML SYRINGE SC SCH (10:00)
== END 2023-06-11 22:09 | DRG 4 ==
LOC: EDBD 09:43 → ER 09:43 → EDUNIT# 09:43 → TELE 15:48 → ICU WEST 05-20 22:05
PROVIDERS: ADMIT Internal Medicine Geriatric Medicine; ATTEND Family Medicine
PROC: 30233N1 Transfusion of Nonautologous Red Blood Cells into Peripheral Vein, Percutaneous Approach (ICD-10-PCS; principal; 2023-05-20)
PROC: 30233K1 Transfusion of Nonautologous Frozen Plasma into Peripheral Vein, Percutaneous Approach (ICD-10-PCS; 2023-05-20)
PROC: 0D9670Z Drainage of Stomach with Drainage Device, Via Natural or Artificial Opening (ICD-10-PCS; 2023-05-20)
PROC: 5A1955Z Respiratory Ventilation, Greater than 96 Consecutive Hours (ICD-10-PCS; 2023-05-20)
PROC: 0BH17EZ Insertion of Endotracheal Airway into Trachea, Via Natural or Artificial Opening (ICD-10-PCS; 2023-05-20)
PROC: 0DB98ZX Excision of Duodenum, Via Natural or Artificial Opening Endoscopic, Diagnostic (ICD-10-PCS; 2023-05-21)
PROC: 0DB68ZX Excision of Stomach, Via Natural or Artificial Opening Endoscopic, Diagnostic (ICD-10-PCS; 2023-05-21)
PROC: 3E0G8GC Introduction of Other Therapeutic Substance into Upper GI, Via Natural or Artificial Opening Endoscopic (ICD-10-PCS; 2023-05-21)
PROC: 02HV33Z Insertion of Infusion Device into Superior Vena Cava, Percutaneous Approach (ICD-10-PCS; 2023-05-24)
PROC: B548ZZA Ultrasonography of Superior Vena Cava, Guidance (ICD-10-PCS; 2023-05-24)
PROC: 02HV33Z Insertion of Infusion Device into Superior Vena Cava, Percutaneous Approach (ICD-10-PCS; 2023-05-25)
PROC: B548ZZA Ultrasonography of Superior Vena Cava, Guidance (ICD-10-PCS; 2023-05-25)
PROC: 3E0436Z Introduction of Nutritional Substance into Central Vein, Percutaneous Approach (ICD-10-PCS; 2023-05-25)
PROC: 0B110F4 Bypass Trachea to Cutaneous with Tracheostomy Device, Open Approach (ICD-10-PCS; 2023-06-07)
DX: A41.9 Sepsis, unspecified organism (principal); J18.9 Pneumonia, unspecified organism; J96.01 Acute respiratory failure with hypoxia; R65.21 Severe sepsis with septic shock; R57.8 Other shock; N17.0 Acute kidney failure with tubular necrosis; J96.02 Acute respiratory failure with hypercapnia; K25.4 Chronic or unspecified gastric ulcer with hemorrhage; R57.1 Hypovolemic shock; E43 Unspecified severe protein-calorie malnutrition; K29.71 Gastritis, unspecified, with bleeding; E87.20 Acidosis, unspecified; D62 Acute posthemorrhagic anemia; D68.9 Coagulation defect, unspecified; K56.7 Ileus, unspecified; I48.92 Unspecified atrial flutter; I82.403 Acute embolism and thrombosis of unspecified deep veins of lower extremity, bilateral; E87.0 Hyperosmolality and hypernatremia; I48.20 Chronic atrial fibrillation, unspecified; I82.623 Acute embolism and thrombosis of deep veins of upper extremity, bilateral; Z99.11 Dependence on respirator [ventilator] status; Z20.822 Contact with and (suspected) exposure to COVID-19; Z66 Do not resuscitate; E86.0 Dehydration; D69.6 Thrombocytopenia, unspecified; E11.65 Type 2 diabetes mellitus with hyperglycemia; J43.9 Emphysema, unspecified; E87.5 Hyperkalemia; I71.40 Abdominal aortic aneurysm, without rupture, unspecified; K21.9 Gastro-esophageal reflux disease without esophagitis; E88.09 Other disorders of plasma-protein metabolism, not elsewhere classified; E83.42 Hypomagnesemia; E83.51 Hypocalcemia; E83.39 Other disorders of phosphorus metabolism; Z82.3 Family history of stroke; Z82.49 Family history of ischemic heart disease and other diseases of the circulatory system; Z68.28 Body mass index [BMI] 28.0-28.9, adult; I71.43 Infrarenal abdominal aortic aneurysm, without rupture
CPT/HCPCS: 36415; 36569; 36600; 70450; 71045; 71046; 74018; 74177; 76705; 80048; 80053; 80069; 81001; 82040; 82140; 82330; 82570; 82728; 82805; 82962; 83036; 83540; 83550; 83690; 83735; 83935; 84100; 84132; 84156; 84300; 84443; 84478; 85007; 85014; 85018; 85025; 85027; 85610; 85730; 86704; 86706; 86708; 86803; 86850; 86900; 86901; 86920; 87040; 87070; 87081; 87205; 87340; 87426; 93005; 93306; 93970; 93971; 94002; 94003; 94640; C9113; G0378; J0696; J1815; J2250; J2405; J2704; J3480; J7060; J7131; P9047